=== PATIENT | male | born 1955 | race Caucasian/White ===

== ENCOUNTER 2024-05-16 06:19 | Day surgery (SDC) | payer OTHER, SELFPAY ==
[2024-03-15 09:27] VITALS: BMI 31.3
[2024-03-15 10:39] LABS: Hematocrit 41.7 % (39.0-52.0); Hemoglobin 14.7 g/dL (13.0-18.0); Mean Corp Hgb Conc. 35.3 g/dL (33.0-37.0); Mean Corpuscular Hgb 32.5 pg (27.0-31.0); Mean Corpuscular Volume 92.3 fL (80.0-94.0); Mean Platelet Volume 9.2 fL (7.4-10.4); Platelet Count 274 10^3/uL (130-400); Red Blood Cell Count 4.52 10^6/uL (4.70-6.10); Red Cell Dist. Width 13.1 % (11.5-14.5); White Blood Cell Count 7.7 10^3/uL (4.8-10.8)
[2024-03-15 11:08] LABS: Blood Urea Nitrogen 15 mg/dl (9-20); Calcium 9.2 mg/dl (8.4-10.2); Carbon Dioxide 29 mmol/L (22-30); Chloride 104 mmol/L (98-107); Estimated Creatinine Clearance 65 ml/min; Glucose 97 mg/dl (70-99); Potassium 4.6 mmol/L (3.5-5.1); Sodium 142 mmol/L (135-145); eGFR > 60.00
[2024-05-16] VITALS (9 sets, daily range): BP systolic 111–131; BP diastolic 68–87; BMI 31.3
[2024-05-16] MEDS: CELEBREX 200 MG PO (08:10)
[2024-05-16] MEDS: TYLENOL 1000 MG PO (08:10)
== END 2024-05-16 12:29 | disposition home or self-care (01) ==
LOC: SDS 06:19
PROVIDERS: ATTENDING PHYSICIAN Orthopaedic Surgery Hand Surgery
PROC: 0RNJ4ZZ Release Right Shoulder Joint, Percutaneous Endoscopic Approach (ICD-10-PCS; 2024-05-16)
PROC: 0RBJ4ZZ Excision of Right Shoulder Joint, Percutaneous Endoscopic Approach (ICD-10-PCS; 2024-05-16)
DX: M75.41 Impingement syndrome of right shoulder (principal); S46.011A Strain of muscle(s) and tendon(s) of the rotator cuff of right shoulder, initial encounter; X58.XXXA Exposure to other specified factors, initial encounter
CPT/HCPCS: 29827; 29826; 29823; 36415; 80048; 85027; 93005

== ENCOUNTER 2024-05-26 00:44 | Inpatient (IN) | payer OTHER, SELFPAY ==
[2024-05-25 22:35] VITALS: BP 140/99
[2024-05-25 22:55] LABS: % Basophils 1.4 % (0-2); % Eosinophils 0.1 % (0-6); % Immature Granulocytes 0.5 % (0-0.5); % Lymphocytes 7.6 % (20.5-51.1); % Monocytes 9.9 % (1.7-9.3); % Neutrophils 80.5 % (42.2-75.2); Absolute Basophils 0.1 10^3/uL (0-0.2); Absolute Lymphocytes 0.6 10^3/uL (1.2-3.4); Absolute Monocytes 0.8 10^3/uL (0.1-0.6); Absolute Neutrophils 6.2 10^3/uL (1.4-6.5); Hematocrit 47.1 % (39.0-52.0); Hemoglobin 16.4 g/dL (13.0-18.0); Mean Corp Hgb Conc. 34.8 g/dL (33.0-37.0); Mean Corpuscular Hgb 32.3 pg (27.0-31.0); Mean Corpuscular Volume 92.7 fL (80.0-94.0); Mean Platelet Volume 9.1 fL (7.4-10.4); Nucleated Red Blood Cells % 0 % (-); Platelet Count 271 10^3/uL (130-400); Red Blood Cell Count 5.08 10^6/uL (4.70-6.10); Red Cell Dist. Width 12.9 % (11.5-14.5); White Blood Cell Count 7.7 10^3/uL (4.8-10.8)
--- NOTE | 2024-05-25 23:05 | ED.GENMED ---
History of Present Illness
General
Chief Complaint: Vomiting Blood
Source: patient
Exam Limitations: none
Time Seen by Provider: 05/25/24 23:04
Nursing documentation reviewed up to this point in time: agreed with
Travel History
Have you traveled to any high risk areas for coronavirus over the past 14 days?: No
Have you had any contact with someone who has COVID-19?: No
Do you have any symptoms of coronavirus? Fever > 100 degrees, chills, cough, shortness of breath, sore throat, loss of taste or smell, muscle aches, or headache?: No
History of Present Illness
History of Present Illness:
68-year-old male, with a past medical history significant for questionable Crohn's/inflammatory bowel disease, chronic cough secondary to smoking, current smoker current alcoholic, back pain, NSAID and aspirin use for shoulder pain presents to the
hospital with coffee-ground emesis x 2 days. Patient stated that on Tuesday afternoon patient went out for dinner, grabbed 2 beers, and after drinking his 2 beers he did not feel quite well-fatigued and nauseous, then went home and started
throwing up. Initially patient's vomiting was bilious in color did not have any blood, however he started having coffee-ground emesis later that night. He had about 7-8 episodes of vomitings over the last 2 days. His nausea and vomiting is
accompanied by abdominal pain which is dull and aching, 2/10 in intensity present in the umbilical radiating into his left lower quadrant, different from his Crohn's disease (cramping pain in his right lower quadrant-his baseline),
Course
Orders/Labs/Results
Orders:
Orders
05/25/24 22:47
Type+Screen Urgent
Complete Blood Count/With Diff Urgent
Comprehensive Metabolic Panel Urgent
Lipase Urgent
05/25/24 23:02
ABO2 Urgent
BBK Wristband Number:
Associate notified that ABO2 has been ordered: [id number]
Date: 05/25/24
Time: 22:54
Exercise Science Instructor ID: [id number]
05/25/24 23:13
Pantoprazole [Protonix IV] 80 mg .ROUTE .STK-MED ONE
05/25/24 23:25
Pantoprazole 80 mg/100 ml Nss [Protonix] 80 mg in 100 ml IV NOW
Pantoprazole [Protonix IV] 80 mg IV NOW STA
05/25/24 23:27
CT Abd/pelvis W Iv Cont Urgent
Comment:
Reason For Exam: coffee ground emesis
05/25/24 23:40
Add On- LAB Urgent
Tests Added?: lactic acid levels
Abnormal Lab Results
05/25/24
22:47
MCH 32.3 H pg
(27.0-31.0)
Absolute Lymphs (auto) 0.6 L 10^3/uL
(1.2-3.4)
Absolute Monos (auto) 0.8 H 10^3/uL
(0.1-0.6)
Neutrophils % 80.5 H %
(42.2-75.2)
Lymphocytes % 7.6 L %
(20.5-51.1)
Monocytes % 9.9 H %
(1.7-9.3)
Chloride 87 L mmol/L
(98-107)
Carbon Dioxide 35 H mmol/L
(22-30)
BUN 27 H mg/dl
(9-20)
Glucose 169 H mg/dl
(70-99)
Calcium 10.3 H mg/dl
(8.4-10.2)
AST 358 H U/L
(17-59)
ALT 199 H U/L
(0-50)
05/25/24 22:47
05/25/24 22:47
Vital Signs
Initial and Last Documented VS:
Initial Vital Signs
Temp Pulse Resp BP Pulse Ox
100.4 F H 125 18 140/99 95
05/25/24 22:35 05/25/24 22:35 05/25/24 22:35 05/25/24 22:35 05/25/24 22:35
Last Documented Vital Signs
Temp Pulse Resp BP Pulse Ox
100.4 F H 91 23 120/81 94
05/25/24 22:35 05/25/24 23:30 05/25/24 23:30 05/25/24 23:21 05/25/24 23:30
ED Attending Note
-
Portions of this chart may have been created with voice recognition software.� Occasional wrong word or��sound alike� substitutions may have occurred due to the inherent limitations of voice recognition software.
Discharge Plan
Departure
Prescriptions:
No Action
Fruit and Vegetable Daily 5-6-150 mg Capsule
1 cap PO DAILY
Glucosamine Chondroitin 550-30-1 mg Capsule
1 cap PO DAILY
Neuriva Plus 0.85 mg-200 mcg-1.2 mcg Tablet,Chewable
1 tab PO DAILY
krill oil
1 dose PO DAILY
Referrals:
Armani Soto MD [Family Provider] -
Interventions
Interventions:
*Risk Screen - Suicide Last Done: 05/25/24 22:35
*General Assessment Last Done: 05/25/24 22:35
*Neglect/Abuse Screening Last Done: 05/25/24 22:35
Discharge Date and Time
Print Language: ALBANIAN
[2024-05-25 23:07] LABS: ALT (SGPT) 199 U/L (0-50); AST (SGOT) 358 U/L (17-59); Albumin 4.6 g/dl (3.5-5.0); Alkaline Phosphatase 58 U/L (38-126); Blood Urea Nitrogen 27 mg/dl (9-20); Calcium 10.3 mg/dl (8.4-10.2); Chloride 87 mmol/L (98-107); Glucose 169 mg/dl (70-99); Lipase 47 U/L (23-300); Potassium 3.9 mmol/L (3.5-5.1); Sodium 139 mmol/L (135-145); Total Bilirubin 1.1 mg/dl (0.2-1.3); Total Protein 7.4 g/dl (6.3-8.2); eGFR > 60.00
[2024-05-25 23:18] LABS: Carbon Dioxide 35 mmol/L (22-30)
[2024-05-25 23:21] VITALS: BP 120/81
[2024-05-25] MEDS: PROTONIX IV 80 MG IV (23:34)
[2024-05-25] MEDS: PROTONIX 100 IV (23:52)
--- NOTE | 2024-05-25 23:55 | ED.GENMED ---
History of Present Illness
<Betsy Lee MD, Resident - Last Filed: 05/26/24 00:33>
General
Chief Complaint: Vomiting Blood
Source: patient
Exam Limitations: none
Time Seen by Provider: 05/25/24 23:04
Nursing documentation reviewed up to this point in time: agreed with
Travel History
Have you traveled to any high risk areas for coronavirus over the past 14 days?: No
Have you had any contact with someone who has COVID-19?: No
Do you have any symptoms of coronavirus? Fever > 100 degrees, chills, cough, shortness of breath, sore throat, loss of taste or smell, muscle aches, or headache?: No
History of Present Illness
History of Present Illness:
Mr. Apodaca is a 68-year-old male with PMHx significant for questionable Crohn's disease, dermatitis with multiple flareups, chronic cough secondary to smoking, EtOH use, restless leg syndrome, multiple tendon repairs on aspirin and ibuprofen
[id number] presents to the hospital for evaluation of bloody emesis x 2 days. Patient states that on Tuesday in the evening he ate his dinner at a restaurant, grabbed 2 bottles of beer-did not feel quiet right after drinking beer, came home
felt very nauseous and started throwing up. His initial vomiting was bilious stained, nonbloody but subsequent vomiting episodes were coffee-ground in color. He had 7-8 episodes of vomitings over the last 2 days all of which were coffee-ground,
did not notice any bright red blood in his vomiting. He states that his nausea and vomiting are accompanied by abdominal pain-dull and aching pain in his umbilicus radiating to his left lower quadrant, 2/10 in intensity, and his abdominal pain is
different from his baseline abdominal pain from Crohn's disease (which is a cramping pain on the right side of his abdomen). He also states that he has had history of loose stools for greater than 7 to 8 years, Blair stool scale 5 through 7, he
did not notice any blood in his stool. His last colonoscopy was 6 to 7 years ago, his GI suspected some Crohn's disease but no history of any dysplastic or neoplastic polyps. He he also drinks alcohol, 4 days a week, 2 beers per day, and sometimes
up to 4 shots of vodka/along with his beers. He also states that he has some cough, his cough is secondary to his postnasal drip, and he had it for many years unchanged from his baseline.
He reports that he has not been passing enough urine in his urine is dark in color over the last 2 days. He denies having dysuria, frequency, hesitancy.
He denies having any dizziness, lightheadedness, chest pain, shortness of breath, palpitations, swelling of feet, syncopal or near syncopal episodes, constipation, having sick contacts, traveling in the [place] or traveling outside of [facility]
recently.
If applicable-neuro sx onset
Onset of symptoms known: No
Time pt last seen normal is known: No
Past History
<Betsy Lee MD, Resident - Last Filed: 05/26/24 00:33>
Past History
ED Past Medical History: Other (Lumbar radiculopathy, restless leg syndrome, chronic cough, current smoker, current alcohol use, Crohn's disease, dermatitis, impaired vision.)
ED Past Surgical History: Other (Bilateral L3-L4-L5 laminectomy-06/26/2019, right ACL repair-1992, right rotator cuff repair 1994, right rotator cuff revision repair-May 16, 2024)
Patient has exhibited threatening behavior?: No
PSI?: No
Social History
Tobacco: Smoker (5 cigarettes a day for the last 10 years, 1 pack a day for greater than 20 years)
Alcohol: Daily (4 days a week-4-6 drinks a day.)
Drug: None
Personal: Single
Family History
Family History: Other
Review of Systems
<Betsy Lee MD, Resident - Last Filed: 05/26/24 00:33>
Review of Systems
Allergies reviewed?: No
Constitutional: Reports fever and fatigue
EENT: Reports no symptoms
Respiratory: Reports cough
Cardiac: Reports no symptoms
ABD/GI: Reports abdominal pain, nausea, vomiting and diarrhea
: Reports difficulty voiding and dark urine
Musculoskeletal: Reports no symptoms
Skin: Reports no symptoms
Neurological: Reports no symptoms
Endocrine: Reports no symptoms
Hematologic/Lymphatic: Reports no symptoms
Psychiatric: Reports no symptoms
Phy Exam
<Betsy Lee MD, Resident - Last Filed: 05/26/24 00:33>
Physical Exam
Physical Exam:
General Physical [id number]-[id number], mild distress, dry mucous membranes, obese.
Eye exam-no scleral icterus, EOMI, PERRLA
Cardiovascular exam-S1-S2 present, regular rate and rhythm, no murmurs rubs and gallops
Lungs-clear to auscultation bilaterally, no wheezes, rales, rhonchi.
Abdomen-inspection mildly distended abdomen, coffee-ground emesis noted, bowel sounds normal, mild tenderness to palpation in the LLQ, tympanic on percussion.
Rectal exam-stool palpated in the rectal vault, stool brown in color, no skin tags, no hemorrhoids or varices palpated in the rectum, FOBT positive.
Extremities-no clubbing cyanosis or edema.
Neuro-normal strength tone and reflexes in B/L UE and LE.
Scores
<Betsy Lee MD, Resident - Last Filed: 05/26/24 00:33>
GI Bleed
History of cardiac failure?: No
History of hepatic failure?: No
History of recent syncope?: No
Pulse >100?: Yes
SBP <110?: No
Hgb <13 (male) <12 (female)?: No
BUN >18mg/dL?: Yes
Melena present?: No
Recommendation: Pt has higher risk for needing a medical intervention. Inpatient admission recommended.
<Yadira Balderas, DO - Last Filed: 05/26/24 02:27>
GI Bleed
Recommendation: Pt has higher risk for needing a medical intervention. Inpatient admission recommended.
Course
<Betsy Lee MD, Resident - Last Filed: 05/26/24 00:33>
Orders/Labs/Results
Orders:
Orders
05/25/24 22:47
Type+Screen Urgent
Alcohol Urgent
Complete Blood Count/With Diff Urgent
Comprehensive Metabolic Panel Urgent
Lipase Urgent
05/25/24 23:02
ABO2 Urgent
BBK Wristband Number:
Associate notified that ABO2 has been ordered: [id number]
Date: 05/25/24
Time: 22:54
Test Deskman ID: [id number]
05/25/24 23:13
Pantoprazole [Protonix IV] 80 mg .ROUTE .STK-MED ONE
05/25/24 23:25
Pantoprazole 80 mg/100 ml Nss [Protonix] 80 mg in 100 ml IV NOW
Pantoprazole [Protonix IV] 80 mg IV NOW STA
05/25/24 23:27
CT Abd/pelvis W Iv Cont Urgent
Comment:
Reason For Exam: coffee ground emesis
05/25/24 23:40
Add On- LAB Urgent
Tests Added?: lactic acid levels
05/25/24 23:53
Lactic Acid Urgent
05/26/24 00:26
Admit/Transfer Patient As Directed
Co-Sign Provider:
Level of Care: Inpatient admission
Assign to:: IMU- Intermediate Care
Physician / Group: hospitalist
Diagnosis: hematemesis, small bowel obstruction
Reason for Hospitalization: hematemesis
Expected length of stay greater than two midnights?: Yes
ELOS- Estimated Length of Stay in days: 2
I certify the patient meets the requirements for IP care: Yes
Code Status As Directed
Resuscitation Status: Full Code
GI tube insertion- Treatment ONCE
PRN Pain Medication Management As Directed
May give lesser potent ordered pain med per pt: Yes
preference::
Protocol:: Medication orders for pain may be administered in a
manner that supports deferring to patient preference
when the pt is:
- Requesting an ordered lesser potent pain medication.
Least to most potent pain medications are defined
as: acetaminophen < NSAID < tramadol < opioids
(morphine, oxycodone, hydromorphone).
- Requesting a lesser dose of the same medication IF
ORDERED.
- Requesting a less intrusive route of administration
if both routes are prescribed by the provider (PO <
IV).
05/26/24 00:31
Add On- LAB Stat
Tests Added?: alcohol level
05/26/24 00:38
Lidocaine 2% [Lidocaine Uro-Jet 2%] 1 syringe .ROUTE .STK-MED ONE
Abnormal Lab Results
05/25/24 05/26/24
22:47 00:25
MCH 32.3 H pg
(27.0-31.0)
Absolute Lymphs (auto) 0.6 L 10^3/uL
(1.2-3.4)
Absolute Monos (auto) 0.8 H 10^3/uL
(0.1-0.6)
Neutrophils % 80.5 H %
(42.2-75.2)
Lymphocytes % 7.6 L %
(20.5-51.1)
Monocytes % 9.9 H %
(1.7-9.3)
Chloride 87 L mmol/L
(98-107)
Carbon Dioxide 35 H mmol/L
(22-30)
BUN 27 H mg/dl
(9-20)
Glucose 169 H mg/dl
(70-99)
Lactic Acid 2.1 H mmol/L
(0.7-2.0)
Calcium 10.3 H mg/dl
(8.4-10.2)
AST 358 H U/L
(17-59)
ALT 199 H U/L
(0-50)
05/25/24 22:47
05/25/24 22:47
Vital Signs
Initial and Last Documented VS:
Initial Vital Signs
Temp Pulse Resp BP Pulse Ox
100.4 F H 125 18 140/99 95
05/25/24 22:35 05/25/24 22:35 05/25/24 22:35 05/25/24 22:35 05/25/24 22:35
Last Documented Vital Signs
Temp Pulse Resp BP Pulse Ox
100.4 F H 133 27 118/67 94
05/25/24 22:35 05/26/24 01:30 05/26/24 01:30 05/26/24 01:28 05/25/24 23:30
Julilt;Yadira Balderas, DO - Last Filed: 05/26/24 02:27>
Orders/Labs/Results
Orders:
Orders
05/25/24 22:47
Type+Screen Urgent
Alcohol Urgent
Complete Blood Count/With Diff Urgent
Comprehensive Metabolic Panel Urgent
Lipase Urgent
05/25/24 23:02
ABO2 Urgent
BBK Wristband Number:
Associate notified that ABO2 has been ordered: [id number]
Date: 05/25/24
Time: 22:54
Test Deskman ID: [id number]
11/08/24 23:13
Pantoprazole [Protonix IV] 80 mg .ROUTE .STK-MED ONE
05/25/24 23:25
Pantoprazole 80 mg/100 ml Nss [Protonix] 80 mg in 100 ml IV NOW
Pantoprazole [Protonix IV] 80 mg IV NOW STA
05/25/24 23:27
CT Abd/pelvis W Iv Cont Urgent
Comment:
Reason For Exam: coffee ground emesis
05/25/24 23:40
Add On- LAB Urgent
Tests Added?: lactic acid levels
05/25/24 23:53
Lactic Acid Urgent
05/26/24 00:26
Admit/Transfer Patient As Directed
Co-Sign Provider:
Level of Care: Inpatient admission
Assign to:: IMU- Intermediate Care
Physician / Group: hospitalist
Diagnosis: hematemesis, small bowel obstruction
Reason for Hospitalization: hematemesis
Expected length of stay greater than two midnights?: Yes
ELOS- Estimated Length of Stay in days: 2
I certify the patient meets the requirements for IP care: Yes
Code Status As Directed
Resuscitation Status: Full Code
GI tube insertion- Treatment ONCE
PRN Pain Medication Management As Directed
May give lesser potent ordered pain med per pt: Yes
preference::
Protocol:: Medication orders for pain may be administered in a
manner that supports deferring to patient preference
when the pt is:
- Requesting an ordered lesser potent pain medication.
Least to most potent pain medications are defined
as: acetaminophen < NSAID < tramadol < opioids
(morphine, oxycodone, hydromorphone).
- Requesting a lesser dose of the same medication IF
ORDERED.
- Requesting a less intrusive route of administration
if both routes are prescribed by the provider (PO <
IV).
05/26/24 00:31
Add On- LAB Stat
Tests Added?: alcohol level
05/26/24 00:38
Lidocaine 2% [Lidocaine Uro-Jet 2%] 1 syringe .ROUTE .STK-MED ONE
Abnormal Lab Results
05/25/24 05/26/24
22:47 00:25
MCH 32.3 H pg
(27.0-31.0)
Absolute Lymphs (auto) 0.6 L 10^3/uL
(1.2-3.4)
Absolute Monos (auto) 0.8 H 10^3/uL
(0.1-0.6)
Neutrophils % 80.5 H %
(42.2-75.2)
Lymphocytes % 7.6 L %
(20.5-51.1)
Monocytes % 9.9 H %
(1.7-9.3)
Chloride 87 L mmol/L
(98-107)
Carbon Dioxide 35 H mmol/L
(22-30)
BUN 27 H mg/dl
(9-20)
Glucose 169 H mg/dl
(70-99)
Lactic Acid 2.1 H mmol/L
(0.7-2.0)
Calcium 10.3 H mg/dl
(8.4-10.2)
AST 358 H U/L
(17-59)
ALT 199 H U/L
(0-50)
05/25/24 22:47
05/25/24 22:47
Vital Signs
Initial and Last Documented VS:
Initial Vital Signs
Temp Pulse Resp BP Pulse Ox
100.4 F H 125 18 140/99 95
05/25/24 22:35 05/25/24 22:35 05/25/24 22:35 05/25/24 22:35 05/25/24 22:35
Last Documented Vital Signs
Temp Pulse Resp BP Pulse Ox
100.4 F H 133 27 118/67 94
05/25/24 22:35 05/26/24 01:30 05/26/24 01:30 05/26/24 01:28 05/25/24 23:30
<Betsy Lee MD, Resident - Last Filed: 05/26/24 00:33>
MDM/Problems Addressed
Differential Diagnosis Includes:
GI bleed secondary to NSAID use, peptic ulcer disease, gastric or esophageal varices, portal gastropathy, rectal varices, gastric outlet obstruction.
MDM/Problems Addressed:
IV fluids, Protonix IV given. CT abdomen with IV contrast ordered.
<Betsy Lee MD, Resident - Last Filed: 05/26/24 00:33>
*Radiology
Radiology exam reviewed: preliminary read by ED provider and radiology read reviewed
*Pulse Oximetry
Patient hypoxic: no
*EKG
Interpreted by ED Provider?: NA
*Laser Operator Interpretation
Rate: tachycardiac
Heart Rate: 120
Rhythm: sinus
*Critical Care Note
Total Time (30-74mins, 75-104mins- exclusive of procedures): Not Applicable
<Betsy Lee MD, Resident - Last Filed: 05/26/24 00:33>
Update Note
Update Note:
6 Case discussed with radiologist-acute small bowel obstruction with transition point in the mid ileum in the lower abdomen noted. Proximal dilatation up to 3.9 cm. Distal small bowel is decompressed. Updated patient on the course of action.
Patient is in agreement for NG tube placement.
ED Attending Note
<Betsy Lee MD, Resident - Last Filed: 05/26/24 00:33>
-
Portions of this chart may have been created with voice recognition software.� Occasional wrong word or��sound alike� substitutions may have occurred due to the inherent limitations of voice recognition software.
<Yadira Balderas, DO - Last Filed: 05/26/24 02:27>
ED Attending Note
Patient seen and examined by attending physician: Yes
I performed a history and physical exam of patient and discussed management with resident, I reviewed resident's note and agree with documented findings and plan of care.: Yes
ED Attending Note:
68-year-old gentleman with history of Crohn's disease, no current treatment and has not been evaluated by GI in quite some time. He has history of right rotator cuff repair and has been taking a fair amount of NSAIDs recently along with a fair
amount of alcohol consumption generally 4 times per week. He presents with 2-day history of vomiting coffee-ground material. Has been passing brown stools. He denies bright red blood per vomitus. No history of similar episodes in the past. He
does admit to some chronic loose stools. He complains of generalized abdominal pain, bloating.
Upon arrival to the ED is noted to be febrile, tachycardic without hypotension.
68-year-old gentleman appears his stated age, awake and alert, appears in mild distress. Noted to have low-grade fever.
Abdomen is mildly distended, mildly firm with mild generalized tenderness without rebound or guarding. Mildly hyperactive bowel sounds.
Rectal exam heme positive as per resident.
CBC is reassuring.
Chemistries show moderately elevated LFTs with normal bilirubin, normal alkaline phosphatase. No old labs to compare. This may be related to alcohol use versus hepatitis, other consideration is cholecystitis.
Low-grade fever noted. Concern for acute intra-abdominal infectious process, concern for exacerbation of Crohn's disease, other consideration is small bowel obstruction, colitis, ischemic bowel, appendicitis. Concern for sepsis.
IV Protonix bolus and drip has been initiated. IV fluids initiated.
Will check CT abdomen and pelvis.
Will check lactic acid.
Due to GI bleed, unstable vital signs, fever patient is at risk for significant deterioration thus will admit to hospitalist service.
05/26/2024 00:[address] shows small bowel obstruction with transition point mid ileum in the lower abdomen.
Moderately distended stomach. Fluid filling of the distal esophagus with mild esophageal wall thickening.
Will plan for NG tube to low intermittent suction for GI decompression.
Discharge Plan
Departure
Patient Disposition: Admit
Date of Disposition: 05/26/24
Time of Disposition: 00:31
Admit to doctor: noah Carballo
Presentation/result/management discussed w/ accepting MD/DO: Hospitalist
Discharge Problem:
Acute intestinal obstruction
Interventions
Interventions:
*Risk Screen - Suicide Last Done: 05/25/24 22:35
*General Assessment Last Done: 05/25/24 22:35
*Neglect/Abuse Screening Last Done: 05/25/24 22:35
*ED COVID-19 Vaccine History Last Done: 05/26/24 00:12
UI-Pzbfoj-Srfghamdbz Assessment Last Done: 05/26/24 00:12
ED- Cardiac Assessment Last Done: 05/26/24 00:12
ED- Pulmonary Assessment Last Done: 05/26/24 00:12
[2024-05-26] VITALS (17 sets, daily range): BP systolic 111–135; BP diastolic 58–80; PULSE 91–101
--- NOTE | 2024-05-26 00:12 | HPS.HSE ---
Family Physician
-
Family Physician: Armani Soto
Chief Complaint
-
tarry emesis
History of Present Illness
This 68-year-old male with history of alcohol use regularly and otherwise orthopedic history who presents to the emergency department with approximately 1 day of bloody emesis after several days of uncontrolled nausea and vomiting.
Patient reportedly had a right rotator cuff repair about 10 days ago. Following the repair he was given oxycodone for pain. Patient reportedly stopped taking the oxycodone about 5 days ago. Initially took Tylenol which he also ran out of and then
he started taking ibuprofen about 4 days ago. He reported that it takes 600 mg of ibuprofen every 4 hours while awake up to about 6 times a day. He did not send having uncontrolled vomiting that was nonbilious. He started taking antiemetics
Zofran as well as Compazine today. He reported that his vomiting turned black and tarry today. Denies melena. He said his had up to 10 episodes of vomiting today with dark tarry emesis in the last few. He denied chest pain but feels abdominal
pressure. He denies any shortness of breath. He denies cough. He reports chronic postnasal drip. Patient reports history of alcohol use drinking up to 4 beers daily and his last drink was on Tuesday when he had 2. He denies any history of
gallstones. He denies prior history of peptic ulcers or GI bleed. He denies aspirin and anticoagulant use. Last p.o. intake was 2 days ago.
In the Emergency Department the patient had a temp of 100.4, his blood pressure was stable at 120/81 and was satting 94% on room air. Hemoglobin was 16.4. Platelet count was normal at 271. White count was normal at 7.7. BUN/creatinine were 27
and 1.1 respectively, bicarb was 35 the rest of the electrolytes were normal. Lipase was normal. He has a transaminitis with AST of [address] ALT of [address]. [address] of the abdomen pelvis is pending
Medical History
Past Medical History
Past Medical History: Reports None
Past Surgical History: Reports Orthopedic (L2-4 laminectomy)
Additional Past Surgical History:
Right rotator cuff repair
Social History
Tobacco: Smoker
Alcohol: Daily
Drug: None
Personal: Single
Living: Alone
Employment: Employed
Family History
Family History: Not pertinent
Allergies / Home Medications
Allergies reflects when Allergies were last updated in [facility].
Home Medications with original date entered in [facility]
Allergy/Medication List:
Allergies
Allergy/AdvReac Type Severity Reaction Status Date / Time
No Known Allergies Allergy Unverified 03/29/24 09:57
Home Medications
B6 0.85 mg-folic 200 [id number]-vtetse-xjkwyoqrdzwl oral chewable tablet (Neuriva Plus) 1 tab PO DAILY 03/29/24
glucosamine sulf dipot chlr,msm,chond 550 mg-C 30 mg-yobany 1 mg capsule (Glucosamine Chondroitin) 1 cap PO DAILY 03/29/24
krill oil 1 dose PO DAILY 03/29/24
nhiubmpz-eypdwr-fjxof extract 5 mg-6 mg-150 mg capsule (Fruit and Vegetable Daily) 1 cap PO DAILY 03/29/24
Review of Systems
-
Constitutional: Reports No Symptoms
EENT: Reports No Symptoms
Respiratory: Reports No Symptoms
Cardiac: Reports No Symptoms
Abdomen/GI: Reports Nausea and Vomiting
: Reports No Symptoms
Musculoskeletal: Reports No Symptoms
Skin: Reports No Symptoms
Neurological: Reports No Symptoms
Endocrine: Reports No Symptoms
Hematologic/Lymphatic: Reports No Symptoms
Psych: Reports No Symptoms
Physical Exam
Vital Signs
Vital Signs
Temp Pulse Resp BP Pulse Ox
100.4 F H 91 23 120/81 94
05/25/24 22:35 05/25/24 23:30 05/25/24 23:30 05/25/24 23:21 05/25/24 23:30
Physical Exam
General: Well Developed and Well Nourished
HEENT: NormoCephalic, Anicteric and Moist mucous membranes
Respiratory: Clear
Cardiac: S1/S2 and Tachycardia
Breast: Deferred by me
GI: Soft, Non Distended, Normal Bowel Sounds and Tender
Rectal: Brown and Hem Positive
Genito-urinary: Deferred by me
Musculoskeletal: No Clubbing, No Cyanosis and No Edema
Skin: Warm
Neuro: AO x 3
Hematologic/Lymphatic: No Lymphadenopathy
Psych: Calm
Laboratory Results
-
05/25/24 22:47
05/25/24 22:47
Laboratory Results
Total Bilirubin 1.1 mg/dl (0.2-1.3) 05/25/24 22:47
AST 358 U/L (17-59) H 05/25/24 22:47
ALT 199 U/L (0-50) H 05/25/24 22:47
Alkaline Phosphatase 58 U/L (38-126) 05/25/24 22:47
Lipase 47 U/L (23-300) 05/25/24 22:47
Data Reviewed
-
Lab Data: Labs Reviewed by me
Old Records: Reviewed
Impression/Plan
-
IMPRESSION:
68 M with intractable N/V and now hematemesis with black tarry emesis (not coffee grounds) in the setting of NSAID use. No significant abdominal pain or tenderness on exam. Hemodynamically stable. Hgb 16.4. bicarb 35, BUN 27 and Cr 1.1. Suspect
acute gastritis versus peptic ulcer secondary to NSAID use. CTAP eventually did show large amounts of fluid in the esophagus and stomach. There is a small bowel obstruction as well. NG tube placed with over 2 L of gastric content which was that
coffee-ground produced.
PLAN:
1. Hematemesis - Hemodynamically stable and significantly dehydrated. 2 L brown/black emesis with NG tube placement. Appears to have bleed likely due to multifactorial issues including gastric retention, nsaid use and etoh. No prior
intraabdominal surgery. ? h/o crohns disease. No ascites. No obvious cirrhosis on CT scan.
- admit to IMU
- ppi gtt for now
- antiemetics and pain control
- aggressive hydration
- type and screen and trend h/h
- NG tube to suction
- GI consult
- surgery consult
2. Transaminitis - AST> ALT. Normal bili and alkphos. Suspect 2/2 ETOH. No known h/o biliary disease and no meds. No major acetaminophen use
- ctap to ru/o stone
- trend lft for now
- acute hep panel
3. ETOH use - 4 bottles/night. Last use 48 hours ago. No history of withdrawal. No current withdrawal symptoms.
- ciwa protocol
- check folate/b12
DVT PPX - SCDs
Code Status - Full Code
[2024-05-26 01:12] LABS: Lactic Acid 2.1 mmol/L (0.7-2.0)
[2024-05-26 01:14] LABS: Alcohol None Detected
[2024-05-26] MEDS: NSS 1000 IV (01:52)
--- NOTE | 2024-05-26 02:52 | PTCARENOTE ---
Pt. arrived from ED, NG tube placed to LIS. Offers no complaints of pain, N/V.
Focally intact, normocephalic/atraumatic, pupils =/R 3mm.
NSR w/o ectopy, Normotensive, normothermic.
bowel sounds hypoactive, frim round.
[2024-05-26] MEDS: PROTONIX 100 IV ×3 (03:52→18:39)
[2024-05-26] MEDS: D5/0.9% SODIUM CHLORIDE 1000 IV ×3 (03:53→18:39)
[2024-05-26 04:27] LABS: Hematocrit 41.5 % (39.0-52.0); Hemoglobin 14.2 g/dL (13.0-18.0); Mean Corp Hgb Conc. 34.2 g/dL (33.0-37.0); Mean Corpuscular Hgb 32.4 pg (27.0-31.0); Mean Corpuscular Volume 94.7 fL (80.0-94.0); Mean Platelet Volume 9.2 fL (7.4-10.4); Platelet Count 222 10^3/uL (130-400); Red Blood Cell Count 4.38 10^6/uL (4.70-6.10); White Blood Cell Count 8.1 10^3/uL (4.8-10.8)
[2024-05-26 04:49] LABS: ALT (SGPT) 220 U/L (0-50); AST (SGOT) 346 U/L (17-59); Albumin 3.6 g/dl (3.5-5.0); Alkaline Phosphatase 40 U/L (38-126); Blood Urea Nitrogen 26 mg/dl (9-20); Calcium 8.9 mg/dl (8.4-10.2); Carbon Dioxide 34 mmol/L (22-30); Chloride 95 mmol/L (98-107); Direct Bilirubin 0.3 mg/dl (0.0-0.4); Estimated Creatinine Clearance 64 ml/min; Glucose 136 mg/dl (70-99); Magnesium 1.9 mg/dl (1.6-2.3); Phosphorus 4.7 mg/dl (2.5-4.5); Potassium 4.3 mmol/L (3.5-5.1); Sodium 140 mmol/L (135-145); Total Bilirubin 0.8 mg/dl (0.2-1.3); eGFR > 60.00
--- NOTE | 2024-05-26 06:32 | CON.GI ---
Addendum entered and electronically signed by Brandy Chowissa DO Flora 05/26/24 13:36:
I saw and examined the patient.
The EXTRACT OPERATOR or PA's note was reviewed and I agree with the note.
Comment: Briefly, Paulie is a 68-year-old male with past medical history of alcohol and tobacco abuse and questionable Crohn's disease but not formally diagnosed who presents with reported hematemesis, concern for upper GI bleeding as well as a small
bowel obstruction on arrival. CT scan showed transition point in the ileum, NG tube placed with immediate output of 2 L of bilious and coffee-ground material. He admits to heavy NSAID use following repeat should surgery on 05/16. Initial
hemoglobin was 16.4 with improvement to 14.2. Lab abnormalities include elevated transaminases, AST 346, ALT 220, normal T. bili and alkaline phosphatase, platelets within normal limits. He reports previously following with Dr. Sparks at
[facility], EGD and colonoscopy performed about 5 years ago, states they felt it could be Crohn's but were unable to definitively say. Never received treatment for this, cannot provide any additional details requiring this. He does admit to
chronic GI symptoms of bloating and diarrhea for the last 15 to 20 years. He does recall a capsule endoscopy at some point, no MRE or CTE.
#SBO-- concern for new IBD diagnosis (Crohns)
-NG with 1500 cc of bilious output; no concern for active GI bleeding
-IV PPI
-Surgery following, no plans for surgical intervention at this time; depending on clinical course, would defer endoscopic intervention to outpatient setting following resolution of his obstruction
-Agree with PO contrast study pending clinical course
-CRP elevated to 74.70
-check hepatitis serologies, quant TB, fecal calprotectin
-request records from [facility] (Dr. Sparks) on Tuesday, given reported 'questionable' Crohns on prior exams
Acute Liver Injury- likely 2/2 active EtoH use given AST > ALT; need to consider possible autoimmune etiology given suspected IBD; would hold off on sending comprehensive serologic workup at this time
-AST 346, ALT 220, Alk phos 40, Tbili 0.8
-no evidence of cirrhosis on imaging
-check hepatitis serologies
-no signs of withdrawal
Original Note:
Consultation
-
Date/Time Consultation Requested: 05/26/24213
Date/Time Consultation Performed: 05/26/24 07
Requesting Provider: noah Rodriguez MD
Performing Provider: BRUCE Rodriguez, Flor Hines DO
Reason for Consultation: hematemesis
Medical History
Chief Complaint / HPI
History of Present Illness:
Pt is a 68yo with hx prior lami, ACL repair, ? crohns disease, dermatitis, with regular ETOH/tobacco use that went for repeat shoulder surgery 05/16. In review with patient he was initially taking oxycodone. He admits since that time he has taken
about 7 tablets of the 10 he was given. After he took a few oxycodone he did wean himself down to Tylenol but did run out. He then began taking Advil several tablets every few hours over the last 2 days. He admits this past Tuesday he began
vomiting blood for 2 days with large volumes of dark emesis. On admission pt noted with hbg 16.4 with drop to 14.2. He is noted with normal platelets, albumin with some elevation of AST 346 and ALT to 220. Ct on admission with concern for distal
SBO with dilated stomach and fluid in distal esophagus.
In review with patient he does have some chronic GI symptoms. He does admit to some chronic bloating and diarrhea for 15-20 years. He has been followed by Dr. Sparks at [place] he has questionable Crohn's disease but has never had a
definitive diagnosis and has never been placed on medications. He recalls about 3-4 colonoscopies in the past with last follow about 5 to 7 years ago. He also recalls a capsule endoscopy at some point but no SB imaging. He denies any other
history of abdominal surgery or prior bowel obstructions. He does admit to occasional reflux with Tums as needed. He also admits to some abdominal pain that started with the vomiting. As far as the diarrhea he will typically have 3-4 stools per
day he will only see solid stool every several months. He denies any constipation blood or black in stools.
Past Medical History
Past Medical History: Other (ETOH abuse, tobacco abuse, ? crohns disease, dermatitis, restless leg syndrome, chronic cough)
Past Surgical History: Orthopedic (rotator cuff repair 10 days ago and in 1994, lami, prior ACL repair, tendon repairs)
Social History
Tobacco: Smoker (5 cigs per day)
Alcohol: Daily (4 drinks 4 times per week)
Drug: Marijuana
Living: Alone
Employment: Employed
Family History
Family History: Other (no family hx crohns/UC no family hx colon CA or polyps)
Allergies / Home Medications
Allergy/AdvReac Type Severity Reaction Status Date / Time
No Known Allergies Allergy Unverified 03/29/24 09:57
�Medication �Instructions �Recorded
B6 0.85 mg-folic 200 1 tab PO DAILY 03/29/24
[id number]-wzobdx-yqtxyxtiyton oral
chewable tablet (Neuriva Plus)
glucosamine sulf dipot 1 cap PO DAILY 03/29/24
chlr,msm,chond 550 mg-C 30 mg-yobany
1 mg capsule (Glucosamine
Chondroitin)
krill oil 1 dose PO DAILY 03/29/24
hufsogsm-exgutw-gfoxd extract 5 1 cap PO DAILY 03/29/24
mg-6 mg-150 mg capsule (Fruit and
Vegetable Daily)
Review of Systems
-
History Source: Patient and Family
Constitutional: Reports Fever (fever like symptom prior to admission) and Weight Gain
EENT: Reports Sore Throat (with NGT)
Respiratory: Reports No Symptoms
Cardiac: Reports No Symptoms
Abdomen/GI: Reports Abdominal Pain, Nausea, Vomiting and Diarrhea
: Reports No Symptoms
Musculoskeletal: Reports No Symptoms
Skin: Reports No Symptoms
Neurological: Reports Weakness
Endocrine: Reports No Symptoms
Hematologic/Lymphatic: Reports Bleeding
Vital Signs
Temp Pulse Resp BP Pulse Ox
98.2 F 103 23 131/80 90
05/26/24 02:33 05/26/24 05:00 05/26/24 05:00 05/26/24 04:00 05/26/24 05:00
Physical Exam
Exam
General: Well Developed, Well Nourished and No Apparent Distress
HEENT: Normocephalic and Anicteric
Respiratory: Clear
Cardiac: Other (tachy)
GI: Soft, Tender (diffuse mild mid abdomen), Distended and Other (NGT in place with dark/black emesis )
Musculoskeletal: No Clubbing, No Cyanosis and Other (right shoulder bruising and limited motion s/p repair)
Skin: Warm, Dry and Rash (chronic small patches of dry dermatitis )
Neuro: Awake, Alert and AO x 3
Psych: Calm
Results
WBC 8.1 10^3/uL (4.8-10.8) 05/26/24 04:03
Hgb 14.2 g/dL (13.0-18.0) 05/26/24 04:03
Hct 41.5 % (39.0-52.0) 05/26/24 04:03
MCV 94.7 fL (80.0-94.0) H 05/26/24 04:03
Plt Count 222 10^3/uL (130-400) 05/26/24 04:03
Absolute Neuts (auto) 6.2 10^3/uL (1.4-6.5) 05/25/24 22:47
Sodium 140 mmol/L (135-145) 05/26/24 04:03
Potassium 4.3 mmol/L (3.5-5.1) 05/26/24 04:03
Chloride 95 mmol/L (98-107) L 05/26/24 04:03
Carbon Dioxide 34 mmol/L (22-30) H 05/26/24 04:03
BUN 26 mg/dl (9-20) H 05/26/24 04:03
Creatinine 1.1 mg/dL (0.7-1.3) 05/26/24 04:03
Calcium 8.9 mg/dl (8.4-10.2) 05/26/24 04:03
Total Bilirubin 0.8 mg/dl (0.2-1.3) 05/26/24 04:03
AST 346 U/L (17-59) H 05/26/24 04:03
ALT 220 U/L (0-50) H 05/26/24 04:03
Alkaline Phosphatase 40 U/L (38-126) 05/26/24 04:03
Lipase 47 U/L (23-300) 05/25/24 22:47
Diagnostic Image Results:
05/25/24 CT Abd/pelvis W Iv Cont
Findings suspicious for mid to distal small bowel obstruction, as noted above, without findings to suggest free air, pneumatosis or portal venous gas.
Dilated stomach with air and fluid as well as mildly dilated distal esophagus containing fluid.
Prior GI Procedures:
EGD: none
Colonoscopy: 3-[address] De La Paz ? crohns but no definitive diagnosis
Assessment / Plan
-
Pt is a 68yo with hx prior lami, ACL repair, ? crohns disease, dermatitis, with regular ETOH/tobacco use that went for repeat shoulder surgery 05/16. In review with patient he was initially taking oxycodone. He admits since that time he has taken
about 7 tablets of the 10 he was given. After he took a few oxycodone he did wean himself down to Tylenol but did run out. He then began taking Advil several tablets every few hours over 2 days. He admits this past Tuesday he began vomiting
blood for 2 days with large volumes of dark emesis. On admission pt noted with hbg 16.4 with drop to 14.2. He is noted with normal platelets, albumin with some elevation of AST 346 and ALT to 220. Ct on admission with concern for distal SBO with
dilated stomach and fluid in distal esophagus.
-concern for distal SBO on CT s/p decompression with NGT on admission
-recent increased NSAID use s/p shoulder surgery 05/16
-elevated transaminases
-? hx crohns no prior meds and diagnosis not confirmed , chronic diarrhea and bloating
other med problems:
-tobacco abuse
-EOTH abuse
-prior lami/ACL repair
-dermatitis - chronic rash
PLAN:
Etiology of symptoms with concern for small bowel obstruction with large volume emesis and finding on CT
etiology of obstruction related to underlying SB crohn's that has not been fully diagnosed vs other _NSAID related ulcer withobstruction vs constipation with narcotic use which pt denies and has chronic diarrhea
agree with NGT decompression -initially drained 1 1/2 canister in ER now less volume last few hours with some improvement in pain and bloating
will check follow up abd film
for surgical eval
add CRP, ESR and fecal yvette
obtain if able records from Dr. De La Paz
if not improving and surgery needed will need to review surgical path for underlying crohns vs if improvement without surgery eventual repeat colonoscopy and SB imaging
with undefined crohn diagnosis will review with Dr. Hinse any role for steroids
discussed NSAID, ETOH and tobacco use
cont NPO, PPI gtt
trend LFT's may be ETOH related
-
-
Thank you for consultation and allowing me to participate in the patient's care. Please call the air conditioning mechanic GI physician during the after hours with any questions or concerns.
[2024-05-26] MEDS: FOLVITE 1 MG PO (08:41)
[2024-05-26] MEDS: THIAMINE INJECTION 200 MG IV ×2 (08:42→20:19)
[2024-05-26 09:25] LABS: Erythrocyte Sed Rate 24 mm/hour (0-20)
--- NOTE | 2024-05-26 10:27 | W.PN.HOSP.TC ---
Today's Communication/Plan
-
PPI. NG tube. N.p.o.
Assessment / Plan
Assessment / Plan
Physical exam:
General: Acutely ill
HEENT: Normocephalic, Atraumatic and Moist Mucous Membranes
Respiratory: Clear to Auscultation; Negative Wheezes, Rales or Rhonchi
Cardiac: Regular Rhythm and S1/S2
GI: Soft, Nontender and Nondistended
Musculoskeletal: No Clubbing, No Cyanosis and No Edema
Neuro: Awake, Alert and Oriented
Psych: Calm
A/P:
Small bowel obstruction:
Keep n.p.o.
IV fluids
NG tube
May need p.o. contrast study depending on his clinical course
Surgery consult appreciated
Fever:
Likely related to SBO
Monitor off antibiotic
Probable GI bleed:
Related to SBO or Teresita-Maier or other
Continue IV PPI
GI consult appreciated
Probable Crohn's:
Defer steroids use to GI
Requesting all records
Continue to monitor
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
Check hepatitis serology
Monitor trend
Alcohol use disorder:
Continue MSA protocol but no withdrawal symptoms at the moment
DVT prophylaxis:
SCDs
CODE STATUS:
Full code
Total time spent on today's encounter was 52 minutes which included time spent in counseling the patient/family regarding diagnosis and treatment plan as listed above, goals of care, and symptom management. Case was discussed with nursing staff,
specialists, and care coordinators/case management. All labs and imaging personally reviewed by me. Remainder the time spent in detailed review of previous records, lab data, imaging, and other medical provider documentation.
Anticipated Discharge: > 48 hours
Subjective/Interval History
-
Date of Service: May 26, 2024
Patient with abdominal discomfort. He has NG tube in place. No chest pain or shortness of breath. Afebrile
Objective Data
-
Labs:
Laboratory Results
05/25/24 05/26/24
22:47 04:03
WBC 7.7 8.1
Hgb 16.4 14.2
Hct 47.1 41.5
Plt Count 271 222
Sodium 139 140
Potassium 3.9 4.3
Chloride 87 L 95 L
Carbon Dioxide 35 H 34 H
BUN 27 H 26 H
Creatinine 1.1 1.1
Glucose 169 H 136 H
Calcium 10.3 H 8.9
Total Bilirubin 1.1 0.8
AST 358 H 346 H
ALT 199 H 220 H
Alkaline Phosphatase 58 40
Vital Signs:
Vital Signs
Temp Pulse Resp BP Pulse Ox
98.3 F 103 23 131/80 90
05/26/24 07:16 05/26/24 05:00 05/26/24 05:00 05/26/24 04:00 05/26/24 05:00
I&O
05/25/24 05/26/24 05/27/24
06:59 06:59 06:59
Output Total 1775 / 1775
Balance -1775 / -1775
--- NOTE | 2024-05-26 10:30 | CON.GS ---
Documented by User: BRUCE Garcia 05/26/24 13:19
Consultation
-
Date/Time Consultation Requested: 05/26/24213
Requesting Provider: Kait
Reason for Consultation: small bowel obstruction, hematemesis, ng tube
Medical History
-
Chief Complaint: abdominal pain
History of Present Illness:
Mr. Muro is a 68 yo male with recent right rotator cuff repair and possible history of Crohn's who presents with nausea and vomiting over the past 3-4 days. He notes that the vomit turned darker yesterday and was tarry causing him to present to
the ED. He notes that he is still passing gas but has not had a recent stool. At baseline, he usually has 3-4 stools per day. He notes bloating and mid abdominal pain with tenderness and distention on exam. NGT was placed in the ED which he reports
has helped his symptoms. Thick bilious outputs noted within the canister. Voice is hoarse with NGT in place somewhat limiting history.
Past Medical History
Past Surgical History: Orthopedic (l2-4 laminectomy, right rotator cuff repair, ACL repair)
Social History
Tobacco: Smoker (07/21 ppd)
Alcohol: Occasional (4 drinks 4x a week)
Drug: Marijuana
Personal: Single
Family History
Family History: Reviewed & Not Pertinent
Allergies / Home Medications
Allergy/AdvReac Type Severity Reaction Status Date / Time
No Known Allergies Allergy Unverified 03/29/24 09:57
�Medication �Instructions �Recorded �Confirmed �Type
B6 0.85 mg-folic 200 1 tab PO DAILY 03/29/24 05/16/24 History
[id number]-dyxtdl-rybmcxbjzfzi oral
chewable tablet (Neuriva Plus)
glucosamine sulf dipot 1 cap PO DAILY 03/29/24 05/16/24 History
chlr,msm,chond 550 mg-C 30 mg-yobany
1 mg capsule (Glucosamine
Chondroitin)
krill oil 1 dose PO DAILY 03/29/24 05/16/24 History
btfcablp-swjoeq-sborv extract 5 1 cap PO DAILY 03/29/24 05/16/24 History
mg-6 mg-150 mg capsule (Fruit and
Vegetable Daily)
Review of Systems
-
History Source: Patient
All other systems: Negative unless noted
A 10 point review of systems was completed, and was negative except as per HPI.
Physical Exam
Vital Signs
Temp Pulse Resp BP Pulse Ox
98.3 F 103 23 131/80 90
05/26/24 07:16 05/26/24 05:00 05/26/24 05:00 05/26/24 04:00 05/26/24 05:00
05/25/24 05/26/24 05/27/24
06:59 06:59 06:59
Actual Weight 81.8 kg
Body Mass Index (BMI) 30.0
Lab Results
05/26/24 04:03
05/26/24 04:03
WBC 8.1 10^3/uL (4.8-10.8) 05/26/24 04:03
Hgb 14.2 g/dL (13.0-18.0) 05/26/24 04:03
Hct 41.5 % (39.0-52.0) 05/26/24 04:03
Plt Count 222 10^3/uL (130-400) 05/26/24 04:03
Abs Immat Gran (auto) 0.0 10^3/uL (0-0.05) 05/25/24 22:47
Neutrophils % 80.5 % (42.2-75.2) H 05/25/24 22:47
Physical Exam
General: Well Developed and No Apparent Distress
HEENT: Moist Mucous Membranes and Other (hoarse voice)
Respiratory: Non Labored Respirations
GI: Soft, Tender (mild to mod centrally) and Distended (mild to mod)
Skin: Warm and Dry
Neuro: Awake, Alert and AO x 3
Psych: Calm
Data Reviewed
-
CT Scan: Image Personally Visualized and interpreted, Report Reviewed by me, Discussed with Physician and Discussed with Patient
Labs: Labs Reviewed by me, Discussed with Physician and Discussed with Patient
Assessment / Plan
-
68 yo male with recent rotator cuff surgery and possible h/o Crohn's presenting through the ED with 3-4 days of n/v but able to pass flatus. CT imaging reviewed and consistent with a partial SBO of uncertain etiology. Denies prior intraabdominal
infections or surgeries. No hernias present. No free air, pneumatosis or evidence of bowel threat/compromise. Possibly pSBO secondary to IBD flare?
NGT with 1500ml output overnight, bilious outputs present and improvement in symptoms s/p placement. Blood noted with placement.
Hypovolemia with tachycardia present, HR improving with volume resuscitation.
Low grade temp last night of 100.4, no leukoctyosis
ABD xrays this am with good placement of NGT, distention consistent with obstruction still present
--No plans for emergent surgery today
--Will follow with bowel rest and decompression
--GI following, will defer further IBD workup/empiric treatment to GI service
--On IV PPI
--If no improvement, will plan imaging with PO contrast Tuesday to further evaluate

Documented by User: Greg Lopez MD 05/26/24 13:30
Assessment / Plan
-
68 yo male with recent rotator cuff surgery and possible h/o Crohn's presenting through the ED with 3-4 days of n/v but able to pass flatus. CT imaging reviewed and consistent with a partial SBO of uncertain etiology. Denies prior intraabdominal
infections or surgeries. No hernias present. No free air, pneumatosis or evidence of bowel threat/compromise. Possibly pSBO secondary to IBD flare?
NGT with 1500ml output overnight, bilious outputs present and improvement in symptoms s/p placement. Blood noted with placement.
Hypovolemia with tachycardia present, HR improving with volume resuscitation.
Low grade temp last night of 100.4, no leukoctyosis
ABD xrays this am with good placement of NGT, distention consistent with obstruction still present
--No plans for emergent surgery today
--Will follow with bowel rest and decompression
--GI following, will defer further IBD workup/empiric treatment to GI service
--On IV PPI
--If no improvement, will plan imaging with PO contrast Tuesday to further evaluate
I saw and examined the patient independently.
The [place] [employer] Operator's note was reviewed and I agree with the note, assessment and plan except where noted below.
Comment: This is a 68-year-old male, recent rotator cuff surgery (Dr. Jennings), questionable Crohn's/IBD history (not biopsy-proven) who presents with a 3 to 4-day history of nausea vomiting with flatus and found to have a partial small bowel
obstruction on CT despite no hernias or prior intra-abdominal surgeries or infections. His exam and vitals are reassuring. Given overall picture would favor a Crohn's flare as the underlying cause
Appreciate GI involvement and would defer workup and treatment to their service.
No acute general surgery intervention warranted at this time.
Diet per GI
General surgery will follow peripherally, please call with any questions or concerns.
I spent 60 minutes in total for the care of this patient today including direct patient care and counseling, reviewing labs, imaging, coordination of care, as well as documentation.
--- NOTE | 2024-05-26 12:38 | PTCARENOTE ---
Pt received from slot shift supervisor RN. Ox3 and appropriate, MSAS scored 0. NSR on tele, ortho's (-). 97% on RA, breath sounds clear. NPO, sergio sump in L nare at the 65cm nichole. Sergio is on LIS pulling a small amount of dark brown/ black bile. Using urinal
without difficulty. R shoulder with recent rotator cuff surgery, pt has a sling that he uses when he gets up. IV sites intact, pt has protonix gtt infusing. Call ocasio within reach.
[2024-05-26] MEDS: TYLENOL 650 MG PO ×2 (13:23→20:21)
--- NOTE | 2024-05-26 16:35 | CM ---
Patient admitted from home with gastritis. He lives alone in apartment with 14 steps up. He just went back to work after shoulder surgery.
He is able to take care of himself.
He does not use any DME. No history of VNA or SNF.
PCP Dr. Eliazar Weber
Pharmacy: [facility]
Plan; home no needs
[2024-05-27] VITALS (10 sets, daily range): BP systolic 108–165; BP diastolic 70–127; BMI 31.0
[2024-05-27] MEDS: D5/0.9% SODIUM CHLORIDE 1000 IV ×3 (02:18→19:48)
[2024-05-27] MEDS: TYLENOL 650 MG PO ×2 (02:19→23:52)
[2024-05-27 03:44] LABS: Hematocrit 36.2 % (39.0-52.0); Hemoglobin 11.9 g/dL (13.0-18.0); Mean Corp Hgb Conc. 32.9 g/dL (33.0-37.0); Mean Corpuscular Hgb 31.7 pg (27.0-31.0); Mean Corpuscular Volume 96.5 fL (80.0-94.0); Mean Platelet Volume 9.3 fL (7.4-10.4); Platelet Count 200 10^3/uL (130-400); Red Blood Cell Count 3.75 10^6/uL (4.70-6.10); Red Cell Dist. Width 12.9 % (11.5-14.5); White Blood Cell Count 6.9 10^3/uL (4.8-10.8)
[2024-05-27 04:06] LABS: ALT (SGPT) 117 U/L (0-50); AST (SGOT) 83 U/L (17-59); Albumin 2.8 g/dl (3.5-5.0); Alkaline Phosphatase 42 U/L (38-126); Blood Urea Nitrogen 17 mg/dl (9-20); Calcium 7.8 mg/dl (8.4-10.2); Carbon Dioxide 30 mmol/L (22-30); Chloride 104 mmol/L (98-107); Estimated Creatinine Clearance 71 ml/min; Glucose 106 mg/dl (70-99); Potassium 3.3 mmol/L (3.5-5.1); Sodium 141 mmol/L (135-145); Total Bilirubin 0.4 mg/dl (0.2-1.3); Total Protein 5.1 g/dl (6.3-8.2); eGFR > 60.00
[2024-05-27] MEDS: PROTONIX 100 IV (04:50)
--- NOTE | 2024-05-27 08:05 | W.PN.HOSP.TC ---
Today's Communication/Plan
-
Abdomen x-ray. N.p.o. NG tube and IV fluids. PPI
Assessment / Plan
Assessment / Plan
Physical exam:
General: Acutely ill
HEENT: Normocephalic, Atraumatic and Moist Mucous Membranes
Respiratory: Clear to Auscultation; Negative Wheezes, Rales or Rhonchi
Cardiac: Regular Rhythm and S1/S2
GI: Soft, hypoactive bowel sounds, nontender and Nondistended
Musculoskeletal: No Clubbing, No Cyanosis and No Edema
Neuro: Awake, Alert and Oriented
Psych: Calm
A/P:
Small bowel obstruction:
Keep n.p.o.
IV fluids
NG tube--> plan for NG tube clamp trial
Plan for abdominal x-ray today
Surgery consult appreciated
Fever:
Likely related to SBO
Monitor off antibiotic
Probable GI bleed:
Related to SBO or Teresita-Maier or other
Continue IV PPI but switch from drip to twice daily
GI consult appreciated and no concern for active bleeding
Anemia:
Hemoglobin 14.2--> 11.9
Acute blood loss anemia versus dilutional
Continue to monitor hemoglobin
Probable Crohn's:
Defer steroids or any immunosuppressive use to GI
Requesting old records--> he says he was diagnosed many years back but has not required any treatment.
Continue to monitor
Hypokalemia:
Replete and trend
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
Trending down
Check hepatitis serology
Monitor trend
Alcohol use disorder:
Continue MSA protocol but no withdrawal symptoms at the moment
DVT prophylaxis:
SCDs
CODE STATUS:
Full code
Anticipated Discharge: > 48 hours
Subjective/Interval History
-
Date of Service: May 27, 2024
Patient passing gases today, decreased NG tube output. No chest pain or shortness of breath. Afebrile
Objective Data
-
Labs:
Laboratory Results
05/27/24
03:17
WBC 6.9
Hgb 11.9 L
Hct 36.2 L
Plt Count 200
Sodium 141
Potassium 3.3 L
Chloride 104
Carbon Dioxide 30
BUN 17
Creatinine 1.0
Glucose 106 H
Calcium 7.8 L
Total Bilirubin 0.4
AST 83 H
ALT 117 H
Alkaline Phosphatase 42
Vital Signs:
Vital Signs
Temp Pulse Resp BP Pulse Ox
98.1 F 63 17 108/70 97
05/27/24 03:19 05/27/24 04:00 05/27/24 04:00 05/27/24 04:00 05/27/24 05:50
I&O
05/26/24 05/27/24 05/28/24
06:59 06:59 06:59
Intake Total 1859
Output Total 1774 750 / 750
Balance -1774 / -1774 -750 / -750
[2024-05-27] MEDS: KCL 270 MEQ IV (08:46)
[2024-05-27] MEDS: FOLVITE 1 MG PO (08:54)
[2024-05-27] MEDS: THIAMINE INJECTION 200 MG IV ×2 (08:54→20:18)
[2024-05-27] MEDS: ULTRAM 50 MG PO (08:54)
--- NOTE | 2024-05-27 09:29 | W.PN.GS2 ---
Today's Communication / Plan
-
NGT clamp trial, continue NPO
Assessment / Plan
-
68 yo male with recent rotator cuff surgery and possible h/o Crohn's presenting through the ED with 3-4 days of n/v but able to pass flatus. CT imaging reviewed and consistent with a partial SBO of uncertain etiology. Denies prior intraabdominal
infections or surgeries. No hernias present. No free air, pneumatosis or evidence of bowel threat/compromise. Possibly pSBO secondary to IBD flare?
AFVSS
Symptomatic improvement
CRP elevated, no leukocytosis
--No plans for emergent surgery
--ABD xr pending
--Clamp trial of NGT, return to suction if becomes symptomatic
--GI following, will defer further IBD workup/empiric treatment to GI service
--On IV PPI
Subjective Data
-
Date of Service: May 27, 2024
Patient seen and examined at bedside with Dr. Lopez. Notes abdominal pain continues to improve. Passing flatus. No bm as of yet.
Objective Data
-
Intake and Output
05/26/24 05/27/24 05/28/24
06:59 06:59 06:59
Intake Total 1860 / 1860
Output Total 1775 / 1775 750 / 750
Balance -1775 / -1775 1860 / 1860 -750 / -750
Intake:
Oral fluids 360 / 360
IV fluids (Total) 1500 / 1500
Output:
Gastrointestinal tube output ( 1500 / 1500 750 / 750
Total)
Burleigh Sump 750 / 750
Urine, Voided 275 / 275
Other:
Number of approximated LARGE 1
amounts of urine
Vital Signs
Temp Pulse Resp BP Pulse Ox
98.0 F 63 17 108/70 97
05/27/24 08:21 05/27/24 04:00 05/27/24 04:00 05/27/24 04:00 05/27/24 05:50
Lab Results
05/27/24 03:17
05/27/24 03:17
Calcium 7.8 mg/dl (8.4-10.2) L 05/27/24 03:17
Phosphorus 4.7 mg/dl (2.5-4.5) H 05/26/24 04:03
Magnesium 1.9 mg/dl (1.6-2.3) 05/26/24 04:03
Total Bilirubin 0.4 mg/dl (0.2-1.3) 05/27/24 03:17
Direct Bilirubin 0.3 mg/dl (0.0-0.4) 05/26/24 04:03
AST 83 U/L (17-59) H 05/27/24 03:17
ALT 117 U/L (0-50) H 05/27/24 03:17
Alkaline Phosphatase 42 U/L (38-126) 05/27/24 03:17
Total Protein 5.1 g/dl (6.3-8.2) L 05/27/24 03:17
Albumin 2.8 g/dl (3.5-5.0) L 05/27/24 03:17
Physical Exam
-
NAD
ABD soft, generalized mild tenderness mostly centrally,ngt with gastric outputs, mildly distended
--- NOTE | 2024-05-27 09:52 | W.PN.GI.CBS2 ---
Today's Communication / Plan
-
NGT clamp trial, continue NPO. Check abdominal xray.
Assessment / Plan
-
Paulie is a 68-year-old male with past medical history of alcohol and tobacco abuse and questionable Crohn's disease but not formally diagnosed who presents with reported hematemesis, concern for upper GI bleeding as well as a small bowel obstruction
on arrival. CT scan showed transition point in the ileum, NG tube placed with immediate output of 2 L of bilious and coffee-ground material. He admits to heavy NSAID use following repeat should surgery on 05/16. Initial hemoglobin was 16.4 with
improvement to 14.2. Lab abnormalities include elevated transaminases, AST 346, ALT 220, normal T. bili and alkaline phosphatase, platelets within normal limits. He reports previously following with Dr. Sparks at [facility], EGD and
colonoscopy performed about 5 years ago, states they felt it could be Crohn's but were unable to definitively say. Never received treatment for this, cannot provide any additional details requiring this. He does admit to chronic GI symptoms of
bloating and diarrhea for the last 15 to 20 years. He does recall a capsule endoscopy at some point, no MRE or CTE.
#SBO-- concern for new IBD diagnosis (Crohns)
-NG with 1500 cc of bilious output; no concern for active GI bleeding
-NGT clamp trial, continue NPO for now
-Abd xray pending
-IV PPI
-Surgery following, appreciate input-- no plans for surgical intervention, appears to be only partially obstructed
-UGI w/ SBFT vs. CTE tomorrow-- will discuss with surgery
-Agree with PO contrast study pending clinical course
-CRP elevated to 74.70
-check hepatitis serologies, quant TB, fecal calprotectin
-request records from [facility] (Dr. Sparks) tomorrow, given reported 'questionable' Crohns on prior exams
Acute Liver Injury- likely 2/2 active EtoH use given AST > ALT; need to consider possible autoimmune etiology given suspected IBD; would hold off on sending comprehensive serologic workup at this time
-AST 346, ALT 220, Alk phos 40, Tbili 0.8 --> downtrending, AST 83, ALT 117, Alk phos 42, Tbili WNL
-no evidence of cirrhosis on imaging
-check hepatitis serologies
-no signs of withdrawal
DVT ppx
Subjective
Subjective
Date of Service: May 27, 2024
Patient seen in follow-up, no significant output from NG tube since yesterday. Reports feeling improved, passing flatus, last bowel movement 48 hours ago. NG tube clamp trial initiated by colorectal surgery. Abdominal x-ray pending.
Objective
Data Reviewed
Laboratory Data:
Laboratory Results
05/27/24 03:17
05/27/24 03:17
Laboratory Results
Phosphorus 4.7 mg/dl (2.5-4.5) H 05/26/24 04:03
Magnesium 1.9 mg/dl (1.6-2.3) 05/26/24 04:03
Total Bilirubin 0.4 mg/dl (0.2-1.3) 05/27/24 03:17
AST 83 U/L (17-59) H 05/27/24 03:17
ALT 117 U/L (0-50) H 05/27/24 03:17
Alkaline Phosphatase 42 U/L (38-126) 05/27/24 03:17
Lipase 47 U/L (23-300) 05/25/24 22:47
Vital Signs and I&O:
Vital Signs
Temp Pulse Resp BP Pulse Ox
98.0 F 63 17 108/70 97
05/27/24 08:21 05/27/24 04:00 05/27/24 04:00 05/27/24 04:00 05/27/24 05:50
I&O
05/26/24 05/27/24 05/28/24
06:59 06:59 06:59
Intake Total 1860 / 1860
Output Total 1774 750 / 750
Balance -1774 -1774 - / 750
Physical Exam
Physical Exam
HEENT: Anicteric and Moist mucous membranes
GI: Distended and Tender (mild tenderness in midabdomen but no rebound or guarding)
[2024-05-27] MEDS: LIDOCAINE 4% PATCH 1 PATCH TOPICAL (17:07)
[2024-05-27] MEDS: LIDOCAINE 4% PATCH TOPICAL (20:17)
[2024-05-27] MEDS: PROTONIX IV 40 MG IV (20:17)
[2024-05-27] MEDS: NSS (PRESERVATIVE FREE) 10 ML IV (20:18)
[2024-05-28] VITALS (11 sets, daily range): BP systolic 112–149; BP diastolic 70–88; BMI 31.6
[2024-05-28] MEDS: D5/0.9% SODIUM CHLORIDE 1000 IV ×2 (03:59→12:15)
[2024-05-28 04:24] LABS: % Basophils 0.9 % (0-2); % Eosinophils 2.8 % (0-6); % Immature Granulocytes 0.9 % (0-0.5); % Lymphocytes 24.3 % (20.5-51.1); % Monocytes 12.1 % (1.7-9.3); Absolute Basophils 0.1 10^3/uL (0-0.2); Absolute Eosinophils 0.2 10^3/uL (0-0.7); Absolute Immature Granulocytes 0.1 10^3/uL (0-0.05); Absolute Lymphocytes 1.9 10^3/uL (1.2-3.4); Absolute Monocytes 0.9 10^3/uL (0.1-0.6); Absolute Neutrophils 4.6 10^3/uL (1.4-6.5); Hemoglobin 12.8 g/dL (13.0-18.0); Mean Corpuscular Hgb 31.8 pg (27.0-31.0); Mean Corpuscular Volume 99.3 fL (80.0-94.0); Mean Platelet Volume 9.5 fL (7.4-10.4); Nucleated Red Blood Cells % 0 % (-); Platelet Count 217 10^3/uL (130-400); Red Blood Cell Count 4.03 10^6/uL (4.70-6.10); Red Cell Dist. Width 12.7 % (11.5-14.5); White Blood Cell Count 7.8 10^3/uL (4.8-10.8)
[2024-05-28 04:44] LABS: Blood Urea Nitrogen 9 mg/dl (9-20); Calcium 8.1 mg/dl (8.4-10.2); Carbon Dioxide 28 mmol/L (22-30); Chloride 104 mmol/L (98-107); Estimated Creatinine Clearance 80 ml/min; Glucose 87 mg/dl (70-99); Magnesium 2.1 mg/dl (1.6-2.3); Potassium 3.4 mmol/L (3.5-5.1); Sodium 143 mmol/L (135-145); eGFR > 60.00
--- NOTE | 2024-05-28 05:24 | W.PN.HOSP.TC ---
Today's Communication/Plan
-
steroids diet as per GI
cont pain control
Protonix
Assessment / Plan
Assessment / Plan
Physical exam:
General: No acute distress, appears comfortable
HEENT: Normocephalic, Atraumatic and Moist Mucous Membranes
Respiratory: Clear to Auscultation; Negative Wheezes, Rales or Rhonchi
Cardiac: Regular Rhythm and S1/S2
GI: Soft, hypoactive bowel sounds, nontender and Nondistended
Musculoskeletal: No Clubbing, No Cyanosis and No Edema
Neuro: Awake, Alert and Oriented
Psych: Calm
A/P:
Small bowel obstruction resolving
IV fluids completed with advancement diet to clear liquid
NG tube removed as per GI
Abd X-ray appreciated
Surgery consult appreciated no acute surgical intervention necessary at this time
CT Enterography appreciated suggestive partial SBO d/t Crohn's disease
GI consult Appreciated Solumedrol 20 mg IV Q8H started
Fever 100.4 05/25 Likely related to Crohn's disease
since resolved, off abx
Possible GI bleed likely related to Crohn's disease
Continue IV PPI BID
GI consult appreciated and no concern for active bleeding
Anemia:
Hemoglobin 14.2--> 11.9-->12.8
Acute blood loss anemia versus dilutional
resolving
monitor
Crohn's disease unclear hx
Cont steroids as per GI
Records Requested--> he says he was diagnosed many years back but has not required any treatment.
Continue to monitor
Hypokalemia:
Replete and trend
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
Trending down
hepatitis serology negative
Alcohol use disorder:
Continue MSAS protocol
no significant withdrawal symptoms noted
DVT prophylaxis:
SCDs
CODE STATUS:
Full code
I spent a total of 50 minutes with the patient or on the floor. More than 50% of this time involved counseling and coordination of care.
Anticipated Discharge: 24 - 48 hours
Subjective/Interval History
-
Date of Service: May 28, 2024
Seen and examined at bedside in no acute distress sitting up comfortably in bed. Overall reports feeling well. Reports right shoulder pain but tolerable with current pain regimen
Objective Data
-
Labs:
Laboratory Results
05/28/24
03:54
WBC 7.8
Hgb 12.8 L
Hct 40.0
Plt Count 217
Sodium 143
Potassium 3.4 L
Chloride 104
Carbon Dioxide 28
BUN 9
Creatinine 0.9
Glucose 87
Calcium 8.1 L
Vital Signs:
Vital Signs
Temp Pulse Resp BP Pulse Ox
97.5 F 65 19 129/77 98
05/28/24 03:51 05/27/24 22:00 05/27/24 22:00 05/27/24 22:00 05/27/24 23:12
I&O
05/26/24 05/27/24 05/28/24
06:59 06:59 06:59
Intake Total 1859
Output Total 1774 850 / 850
Balance -1774 / -1774 -850 / -850
[2024-05-28 08:53] LABS: Phosphorus 2.9 mg/dl (2.5-4.5)
[2024-05-28] MEDS: NSS (PRESERVATIVE FREE) 10 ML IV ×2 (09:24→20:53)
[2024-05-28] MEDS: KCL 270 MEQ IV (09:24)
[2024-05-28] MEDS: PROTONIX IV 40 MG IV ×2 (09:24→20:53)
[2024-05-28] MEDS: THIAMINE INJECTION 200 MG IV ×2 (09:25→20:53)
[2024-05-28] MEDS: FOLVITE 1 MG PO (09:25)
--- NOTE | 2024-05-28 10:08 | W.PN.GI.CBS2 ---
Today's Communication / Plan
-
CTE today
Assessment / Plan
-
Paulie is a 68-year-old male with past medical history of alcohol and tobacco abuse and questionable Crohn's disease but not formally diagnosed who presents with reported hematemesis, concern for upper GI bleeding as well as a small bowel obstruction
on arrival. CT scan showed transition point in the ileum, NG tube placed with immediate output of 2 L of bilious and coffee-ground material. He admits to heavy NSAID use following repeat should surgery on 05/16. Initial hemoglobin was 16.4 with
improvement to 14.2. Lab abnormalities include elevated transaminases, AST 346, ALT 220, normal T. bili and alkaline phosphatase, platelets within normal limits. He reports previously following with Dr. Sparks at [facility], EGD and
colonoscopy performed about 5 years ago, states they felt it could be Crohn's but were unable to definitively say. Never received treatment for this, cannot provide any additional details requiring this. He does admit to chronic GI symptoms of
bloating and diarrhea for the last 15 to 20 years. He does recall a capsule endoscopy at some point, no MRE or CTE.
#SBO-- concern for new IBD diagnosis (Crohns)
-NG with 1500 cc of bilious output; no concern for active GI bleeding
-NGT removed; exam improving.
-Abd xray shows persistent SBO, however, improved compared to prior film
-IV PPI
-Surgery following, appreciate input-- no plans for surgical intervention, appears to be only partially obstructed
-CTE today-- hope to advance diet later on today
-ESR 24
-CRP elevated to 74.70
-check hepatitis serologies, quant TB, fecal calprotectin--pending
-request records from [facility] (Dr. Sparks)- given reported 'questionable' Crohns on prior exams
Acute Liver Injury- likely 2/2 active EtoH use given AST > ALT; need to consider possible autoimmune etiology given suspected IBD; would hold off on sending comprehensive serologic workup at this time
-AST 346, ALT 220, Alk phos 40, Tbili 0.8 --> downtrending, AST 83, ALT 117, Alk phos 42, Tbili WNL; no LFTs on todays labs, repeat with tomorrows labs
-no evidence of cirrhosis on imaging
-check hepatitis serologies-- pending
-no signs of withdrawal
DVT ppx
Subjective
Subjective
Date of Service: May 28, 2024
NGT removed. Small formed BM overnight. Patient endorses feeling better. CTE today.
Objective
Data Reviewed
Laboratory Data:
Laboratory Results
05/28/24 03:54
05/28/24 03:54
Laboratory Results
Phosphorus 2.9 mg/dl (2.5-4.5) 05/28/24 03:54
Magnesium 2.1 mg/dl (1.6-2.3) 05/28/24 03:54
Total Bilirubin 0.4 mg/dl (0.2-1.3) 05/27/24 03:17
AST 83 U/L (17-59) H 05/27/24 03:17
ALT 117 U/L (0-50) H 05/27/24 03:17
Alkaline Phosphatase 42 U/L (38-126) 05/27/24 03:17
Lipase 47 U/L (23-300) 05/25/24 22:47
Vital Signs and I&O:
Vital Signs
Temp Pulse Resp BP Pulse Ox
97.8 F 52 18 135/82 98
05/28/24 07:30 05/28/24 06:00 05/28/24 06:00 05/28/24 04:07 05/27/24 23:12
I&O
05/27/24 05/28/24 05/29/24
06:59 06:59 06:59
Intake Total 1859
Output Total 850 / 850 200 / 200
Balance 1859 -850 / -850 -200 / -200
Physical Exam
Physical Exam
HEENT: Anicteric and Moist mucous membranes
GI: Soft, Distended (improved compared to yesterdays exam) and Tender (mild tenderness in midabdomen but no rebound or guarding)
--- NOTE | 2024-05-28 12:50 | PTCARENOTE ---
Pt for Enterography. Instructed on procedures and drinking contrast. Pt drank contrast as instructed. Sent to CT scan on stretcher. Pt for transfer to new room after scan, report to receiving RN. Belongings and chart packed with pt. CT aware of room
change.
--- NOTE | 2024-05-28 13:14 | W.PN.GS2 ---
Today's Communication / Plan
-
CT enterography today
Assessment / Plan
-
68 yo male with recent rotator cuff surgery and h/o ?Crohn's presenting through the ED with 3-4 days of n/v but able to pass flatus. CT imaging reviewed and consistent with a partial SBO of uncertain etiology. Denies prior intraabdominal infections
or surgeries. No hernias present. No free air, pneumatosis or evidence of bowel threat/compromise. Possibly pSBO secondary to IBD flare?
No acute surgical intervention warranted at this time
Patient going for CTE, on my read it does appear to have stricturing in the terminal ileum consistent with IBD/Crohn's, await final read. Will defer to GI regarding management but would favor steroid treatment.
Will defer diet to GI
General surgery will follow peripherally, please call with any questions or concerns.
Time Spent
Total Time Spent with Patient (in minutes): 20
Subjective Data
-
Date of Service: May 28, 2024
Interval Events:
No acute events overnight. Slept okay. Pain Controlled. Denies Nausea/Vomiting, +bowel function.
Objective Data
-
Intake and Output
05/27/24 05/28/24 05/29/24
06:59 06:59 06:59
Intake Total 1860 / 1860
Output Total 850 / 850 200 / 200
Balance 1860 / 1860 -850 / -850 -200 / -200
Intake:
Oral fluids 360 / 360
IV fluids (Total) 1500 / 1500
Output:
Gastrointestinal tube output ( 850 / 850
Total)
Campbell Sump 850 / 850
Urine, Voided 200 / 200
Other:
Number of approximated MODERATE 1
amounts of urine
Number of approximated LARGE 1
amounts of urine
Vital Signs
Temp Pulse Resp BP Pulse Ox
97.8 F 56 21 139/82 98
05/28/24 07:30 05/28/24 12:00 05/28/24 12:00 05/28/24 12:00 05/27/24 23:12
Lab Results
05/28/24 03:54
05/28/24 03:54
Calcium 8.1 mg/dl (8.4-10.2) L 05/28/24 03:54
Phosphorus 2.9 mg/dl (2.5-4.5) 05/28/24 03:54
Magnesium 2.1 mg/dl (1.6-2.3) 05/28/24 03:54
Total Bilirubin 0.4 mg/dl (0.2-1.3) 05/27/24 03:17
Direct Bilirubin 0.3 mg/dl (0.0-0.4) 05/26/24 04:03
AST 83 U/L (17-59) H 05/27/24 03:17
ALT 117 U/L (0-50) H 05/27/24 03:17
Alkaline Phosphatase 42 U/L (38-126) 05/27/24 03:17
Total Protein 5.1 g/dl (6.3-8.2) L 05/27/24 03:17
Albumin 2.8 g/dl (3.5-5.0) L 05/27/24 03:17
Physical Exam
-
GENERAL/NEURO: Awake, Alert, no distress
CHEST: Unlabored breathing on RA
ABDOMEN: Soft, mildly tender, mildly distended.
--- NOTE | 2024-05-28 13:30 | PTCARENOTE ---
pt transfer from IMU. Report received from LENNOX Rios. Pt c/o pain but tolerable. pt is oriented to the room. call ocasio within the reach. plan of care ongoing.
[2024-05-28] MEDS: TYLENOL 650 MG PO ×2 (15:51→23:45)
[2024-05-28] MEDS: SOLU-MEDROL PF 20 MG IV (17:10)
[2024-05-28 18:31] LABS: Hepatitis B Surface Antigen Negative (Negative)
[2024-05-28 18:37] LABS: Hepatitis A IgM Antibody Negative (Negative); Hepatitis B Core Ab, IgM Negative (Negative)
[2024-05-28 18:48] LABS: Hepatitis B Surface Antibody Negative; Hepatitis C Antibody Negative (Negative)
[2024-05-28] MEDS: D5/0.9% SODIUM CHLORIDE IV (20:51)
[2024-05-28] MEDS: LIDOCAINE 4% PATCH TOPICAL (20:52)
[2024-05-29] MEDS: SOLU-MEDROL PF 20 MG IV ×3 (02:06→17:31)
[2024-05-29 03:46] VITALS: BP 115/64
[2024-05-29 06:58] LABS: Quantiferon Mitogen minus NIL 5.79 IU/mL; Quantiferon NIL 0.09 IU/mL; Quantiferon Plus TB2 minus NIL 0.01 IU/mL (<=0.34); Quantiferon TB Gold Plus Negative (Negative)
[2024-05-29 07:35] VITALS: BP 119/71
--- NOTE | 2024-05-29 07:54 | W.PN.HOSP.TC ---
Today's Communication/Plan
-
Diet advance, steroids, as per GI
cont pain control
Assessment / Plan
Assessment / Plan
Physical exam:
General: No acute distress, appears comfortable
HEENT: Normocephalic, Atraumatic and Moist Mucous Membranes
Respiratory: Clear to Auscultation; Negative Wheezes, Rales or Rhonchi
Cardiac: Regular Rhythm and S1/S2
GI: Soft, hypoactive bowel sounds, nontender and Nondistended
Musculoskeletal: No Clubbing, No Cyanosis and No Edema
Neuro: Awake, Alert and Oriented
Psych: Calm
A/P:
Small bowel obstruction resolving
IV fluids completed with advancement diet to clear liquid
NG tube removed as per GI
Abd X-ray appreciated
Surgery consult appreciated no acute surgical intervention necessary at this time
CT Enterography appreciated suggestive partial SBO d/t Crohn's disease
GI consult Appreciated Solumedrol 20 mg IV Q8H started and diet advanced to clear liquid
Fever 100.4 05/25 Likely related to Crohn's disease
since resolved, off abx
Possible GI bleed likely related to Crohn's disease
Continue IV PPI BID
GI consult appreciated and no concern for active bleeding
Anemia:
Hemoglobin 14.2--> 11.9-->12.8
Acute blood loss anemia versus dilutional
resolving
monitor
Crohn's disease unclear hx
Cont steroids as per GI
Records Requested--> pt reported diagnosed many years back but has not required any treatment since.
Continue to monitor
Hypokalemia:
Replete and trend
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
Trending down
hepatitis serology negative
Alcohol use disorder:
Continue MSAS protocol
no significant withdrawal symptoms noted
DVT prophylaxis:
SCDs
CODE STATUS:
Full code
I spent a total of 40 minutes with the patient or on the floor. More than 50% of this time involved counseling and coordination of care.
Anticipated Discharge: 24 - 48 hours
Subjective/Interval History
-
Date of Service: May 29, 2024
Reports feeling well. Tolerating clear liquid diet.
Objective Data
-
Labs:
Laboratory Results
05/29/24
07:48
WBC Pending
Hgb Pending
Hct Pending
Plt Count Pending
Sodium Pending
Potassium Pending
Chloride Pending
Carbon Dioxide Pending
BUN Pending
Creatinine Pending
Glucose Pending
Calcium Pending
Total Bilirubin Pending
AST Pending
ALT Pending
Alkaline Phosphatase Pending
Vital Signs:
Vital Signs
Temp Pulse Resp BP Pulse Ox
97.9 F 57 18 115/64 97
05/29/24 03:46 05/29/24 03:46 05/29/24 03:46 05/29/24 03:46 05/29/24 03:46
I&O
05/28/24 05/29/24 05/30/24
06:59 06:59 06:59
Intake Total 1080 / 1080
Output Total 850 / 850 700 / 700
Balance -850 / -850 380 / 380
[2024-05-29 08:32] LABS: Hemoglobin 13.7 g/dL (13.0-18.0); Mean Corp Hgb Conc. 34.3 g/dL (33.0-37.0); Mean Corpuscular Hgb 32.9 pg (27.0-31.0); Mean Corpuscular Volume 95.9 fL (80.0-94.0); Mean Platelet Volume 9.9 fL (7.4-10.4); Platelet Count 209 10^3/uL (130-400); Red Blood Cell Count 4.17 10^6/uL (4.70-6.10); Red Cell Dist. Width 12.5 % (11.5-14.5); White Blood Cell Count 10.2 10^3/uL (4.8-10.8)
--- NOTE | 2024-05-29 08:42 | W.PN.GI.CBS2 ---
Addendum entered and electronically signed by Brandy Hines, 05/29/24 13:02:
The patient was seen and examined by me independently in collaboration with the nurse practitioner.
Past medical history/social history/medications/allergies/family history reviewed.
Lab data and imaging data reviewed.
Patient is s/p CTE yesterday, findings of partial SBO and long segment of inflammation/stricture measuring approx 25 cm in the terminal ileum up to the IC valve, suggestive of Crohns. Medical records from Dr. De La Paz obtained and reviewed
extensively. Strong suspicion of crohns dating back to 2008, however, on repeated exam including colonoscopies and capsule endoscopy, unable to establish chronicity on biopsy, only active inflammation. Unable to establish an IBD diagnosis without
chronicity. On his most recent colonoscopy in 2019, the IC valve was stenotic and unable to intubate the TI.
Plan:
-c/w IV solumedrol
-advance to low residue diet tonight
-if he continues to improve, will transition to PO steroids tomorrow
-plan for outpatient colonoscopy in 2 weeks-- hopefully, targeting underlying inflammatory component of TI stricture may enable intubation into the terminal ileum in order to obtain adequate tissue for dx
-prebiologic labs ordered, ideally would start him on Skyrizi, if able to establish dx
Original Note:
Today's Communication / Plan
-
monitor diet tolerance on clear diet
await fecal calpro-- add repeat CRP
IV methylprednisone started 05/28
hepatitis neg no immunity, TB neg
will review records with Dr. Hines and need for repeat colonoscopy OP vs start of biologic therapy
LFT's improved
Assessment / Plan
-
Paulie is a 68-year-old male with past medical history of alcohol and tobacco abuse and questionable Crohn's disease but not formally diagnosed who presents with reported hematemesis, concern for upper GI bleeding as well as a small bowel obstruction
on arrival. CT scan showed transition point in the ileum, NG tube placed with immediate output of 2 L of bilious and coffee-ground material. He admits to heavy NSAID use following repeat should surgery on 05/16. Initial hemoglobin was 16.4 with
drop in 11.6 then back up. Lab abnormalities include elevated transaminases, AST 346, ALT 220, normal T. bili and alkaline phosphatase, platelets within normal limits. He reports previously following with Dr. Sparks at [facility], EGD and
colonoscopy performed about 5 years ago, states they felt it could be Crohn's but were unable to definitively say. Never received treatment for this, cannot provide any additional details requiring this. He does admit to chronic GI symptoms of
bloating and diarrhea for the last 15 to 20 years. He does recall a capsule endoscopy.
Dr. De La Paz Record review:
2008 colonoscopy - ([facility]) granularity, friability, eythema and ulceration in TI c/w ileitis, aphthous ulcers in mid sigmoid colon, otherwise normal colon to cecum ( given Budesonide 9mg daily) bx TI acute ileitis and fibropurulent debris, c/w
origin from ulcer bed present no granulomas seen -- acute infection vs IBD vs drugs such as NSAIDS, Aphthous ulcers focal active colitis, with superficial epthelial erosions neg dysplasia (self limited colitis, antibiotic associated colitis,
ischemic colitis, crohns colitis and other idiopathic inflammatory disease may also be idiopathic
06/2010- capsule ( done for acute ileitis and focal active colitis, SBFT neg crohns suspected) noted probable crohns of small bowel
2012 office visit regional enteritis of small intestine and large intestine no clear need for treatment now. LR diet, if inadequate control first treatment 1 month of prednisone
2015- office visit crohns disease of small and large bowel- episode more typical of IBS then crohns, hyosciamine given if no response then evaluation
2017 office visit - crohns disease and small and large bowel high fiber diet, CRP, CBC and comp checked
01/[address] De La Paz localized ulceration in transverse colon, single ulcer seen though IC valve. Valve stenotic and scope would not go through otherwise normal mucosa in colon bx cecum with non specific inflammation neg active
inflammation, chronicity or dysplasia, , Ascending/transverse colon no pathologic changes, neg chronicity, colitis or dysplasia, sigmoid with focally superficially hyperplastic change neg inflammation, chronicity of dysplasia
#SBO-- concern for crohns flare with obstruction at TI as noted with prior disease with inconclusive biopsy
s/p NGT with large volume drainage on insertion now out
s/p surgical eval
-05/26 ESR 24-CRP elevated to 74.70
05/27 Small bowel obstruction, improved but unresolved when compared with the prior study
05/28 CTE low density bowel wall thickening and incomplete distensibility of distal 25 cm of ileum to level of IC valve pattern suggest crohns with partial SBO with dilated fluid filled loops of small bowel up to 3.8 cm
05/28 IV steroids started
-hepatitis serologies and quant TB negative
- fecal calpro pending
-reviewed records as above-- will review with Dr. Hines-- likely crohns there was question on NSAID related disease which pt was taking prior to admission, advised to stop
Acute Liver Injury- likely 2/2 active EtoH use given AST > ALT; need to consider possible autoimmune etiology given suspected IBD; would hold off on sending comprehensive serologic workup at this time-- repeat labs near normal
-- hepatitis neg no immunity consider eventual vaccination to A and B
-no evidence of cirrhosis on imaging
-no signs of withdrawal
-recent increased NSAID use s/p shoulder surgery 05/16
cont DVT prophylaxis-- encouraged ambulation
other med problems:
-tobacco abuse
-EOTH abuse- counseled on Quitting
-prior lami/ACL repair
-dermatitis - chronic rash
PLAN:
monitor diet tolerance on clear diet
await fecal calpro-- add repeat CRP
IV methylprednisone started 05/28
hepatitis neg no immunity, TB neg
will review records with Dr. Hines and need for repeat colonoscopy OP vs start of biologic therapy
LFT's improved
Subjective
Subjective
Date of Service: May 29, 2024
05/29 brown stool on clear diet still with bloating
Objective
Data Reviewed
Laboratory Data:
Laboratory Results
05/29/24 07:48
Laboratory Results
Phosphorus 2.9 mg/dl (2.5-4.5) 05/28/24 03:54
Magnesium 2.1 mg/dl (1.6-2.3) 05/28/24 03:54
Total Bilirubin 0.4 mg/dl (0.2-1.3) 05/27/24 03:17
AST 83 U/L (17-59) H 05/27/24 03:17
ALT 117 U/L (0-50) H 05/27/24 03:17
Alkaline Phosphatase 42 U/L (38-126) 05/27/24 03:17
Lipase 47 U/L (23-300) 05/25/24 22:47
Vital Signs and I&O:
Vital Signs
Temp Pulse Resp BP Pulse Ox
97.9 F 57 18 115/64 97
05/29/24 03:46 05/29/24 03:46 05/29/24 03:46 05/29/24 03:46 05/29/24 03:46
I&O
05/28/24 05/29/24 05/30/24
06:59 06:59 06:59
Intake Total 1080 / 1080
Output Total 850 / 850 700 / 700
Balance -850 / -850 380 / 380
Physical Exam
Physical Exam
HEENT: Anicteric and Moist mucous membranes
Cardiology: Normal Sinus Rhythm
Pulmonary: Clear
GI: Soft, Distended and Non Tender
Extremities: No Edema
Neuro: Non Focal
[2024-05-29 09:08] LABS: ALT (SGPT) 53 U/L (0-50); AST (SGOT) 29 U/L (17-59); Albumin 3.7 g/dl (3.5-5.0); Alkaline Phosphatase 70 U/L (38-126); Blood Urea Nitrogen 9 mg/dl (9-20); Calcium 8.6 mg/dl (8.4-10.2); Carbon Dioxide 21 mmol/L (22-30); Chloride 104 mmol/L (98-107); Estimated Creatinine Clearance 80 ml/min; Glucose 116 mg/dl (70-99); Magnesium 2.2 mg/dl (1.6-2.3); Phosphorus 3.9 mg/dl (2.5-4.5); Potassium 4.2 mmol/L (3.5-5.1); Sodium 140 mmol/L (135-145); Total Bilirubin 0.8 mg/dl (0.2-1.3); Total Protein 6.3 g/dl (6.3-8.2); eGFR > 60.00
[2024-05-29] MEDS: VITAMIN B1 100 MG PO ×2 (09:32→21:45)
[2024-05-29] MEDS: PROTONIX IV 40 MG IV ×2 (09:33→21:45)
[2024-05-29] MEDS: FOLVITE 1 MG PO (09:33)
[2024-05-29] MEDS: NSS (PRESERVATIVE FREE) 10 ML IV ×2 (09:33→21:46)
[2024-05-29] MEDS: TYLENOL 650 MG PO (10:48)
--- NOTE | 2024-05-29 11:01 | CM ---
Patient seen at bedside. Patient plan is for dicharge home with no needs for VN. Patient with no home DME or concerns about resources. Patient is driving and plans on driving self home. CM will continue to follow for discharge planning needs.
Plan; home with no needs anticipated
[2024-05-29 11:26] VITALS: BP 119/63
[2024-05-29 15:25] VITALS: BP 128/73
[2024-05-29 19:50] VITALS: BP 130/67
[2024-05-29] MEDS: LIDOCAINE 4% PATCH TOPICAL (21:49)
[2024-05-29 23:26] VITALS: BP 125/70
[2024-05-30] MEDS: TYLENOL 650 MG PO (00:12)
[2024-05-30] MEDS: SOLU-MEDROL PF 20 MG IV ×3 (01:13→17:01)
[2024-05-30 03:23] VITALS: BP 129/75
[2024-05-30] MEDS: MYLICON 80 MG PO (04:49)
[2024-05-30 07:20] VITALS: BP 120/69
--- NOTE | 2024-05-30 08:18 | W.PN.HOSP.TC ---
Today's Communication/Plan
-
cont steroids diet as per GI
Ok to dc gold leaf layer
discharge planning
Assessment / Plan
Assessment / Plan
Physical exam:
General: No acute distress, appears comfortable
HEENT: Normocephalic, Atraumatic and Moist Mucous Membranes
Respiratory: Clear to Auscultation; Negative Wheezes, Rales or Rhonchi
Cardiac: Regular Rhythm and S1/S2
GI: Soft, hypoactive bowel sounds, nontender and Nondistended
Musculoskeletal: No Clubbing, No Cyanosis and No Edema
Neuro: Awake, Alert and Oriented
Psych: Calm
A/P:
Small bowel obstruction resolving
IV fluids completed with advancement diet to clear liquid
NG tube removed as per GI
Abd X-ray appreciated
Surgery consult appreciated no acute surgical intervention necessary at this time
CT Enterography appreciated suggestive partial SBO d/t Crohn's disease
GI consult Appreciated Solumedrol 20 mg IV Q8H started and diet gradually advanced to low residue
Fever 100.4 05/25 Likely related to Crohn's disease
since resolved, off abx
Possible GI bleed likely related to Crohn's disease
Continue IV PPI BID
GI consult appreciated and no concern for active bleeding
Anemia:
Hemoglobin 14.2--> 11.9-->12.8
Acute blood loss anemia versus dilutional
resolving
monitor
Crohn's disease unclear hx
Cont steroids as per GI
Records Requested--> pt reported diagnosed many years back but has not required any treatment since.
Continue to monitor
Hypokalemia:
Replete and trend
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
Trending down
hepatitis serology negative
Alcohol use disorder:
Continue MSAS protocol
no significant withdrawal symptoms noted
DVT prophylaxis:
SCDs
CODE STATUS:
Full code
Ok to discontinue gold leaf layer
I spent a total of 40 minutes with the patient or on the floor. More than 50% of this time involved counseling and coordination of care.
Anticipated Discharge: Within 24 hours
Subjective/Interval History
-
Date of Service: May 30, 2024
Sitting up comfortably in chair no acute distress. Bloating gas discomfort overnight resolved with simethicone. Tolerating diet.
Objective Data
-
Labs:
Laboratory Results
05/30/24
07:53
WBC Pending
Hgb Pending
Hct Pending
Plt Count Pending
Sodium Pending
Potassium Pending
Chloride Pending
Carbon Dioxide Pending
BUN Pending
Creatinine Pending
Glucose Pending
Calcium Pending
Total Bilirubin Pending
AST Pending
ALT Pending
Alkaline Phosphatase Pending
Vital Signs:
Vital Signs
Temp Pulse Resp BP Pulse Ox
98 F 59 20 129/75 92
05/30/24 03:23 05/30/24 03:23 05/30/24 03:23 05/30/24 03:23 05/30/24 03:23
I&O
05/29/24 05/30/24 05/31/24
06:59 06:59 06:59
Intake Total 1080 / 1080 720 / 720
Output Total 700 / 700 1125 / 1125
Balance 380 / 380 -405 / -405
[2024-05-30 09:15] LABS: ALT (SGPT) 42 U/L (0-50); AST (SGOT) 26 U/L (17-59); Albumin 3.6 g/dl (3.5-5.0); Alkaline Phosphatase 69 U/L (38-126); Blood Urea Nitrogen 15 mg/dl (9-20); Calcium 8.6 mg/dl (8.4-10.2); Carbon Dioxide 22 mmol/L (22-30); Chloride 103 mmol/L (98-107); Estimated Creatinine Clearance 72 ml/min; Glucose 118 mg/dl (70-99); Magnesium 2.3 mg/dl (1.6-2.3); Potassium 4.1 mmol/L (3.5-5.1); Sodium 137 mmol/L (135-145); Total Bilirubin 0.6 mg/dl (0.2-1.3); Total Protein 5.9 g/dl (6.3-8.2); eGFR > 60.00
[2024-05-30] MEDS: NSS (PRESERVATIVE FREE) 10 ML IV ×2 (09:17→19:14)
[2024-05-30] MEDS: PROTONIX IV 40 MG IV ×2 (09:17→19:14)
[2024-05-30] MEDS: FOLVITE 1 MG PO (09:19)
[2024-05-30] MEDS: VITAMIN B1 100 MG PO ×2 (09:19→19:13)
--- NOTE | 2024-05-30 09:26 | W.PN.GI.CBS2 ---
Today's Communication / Plan
-
Plan to transition to PO steroids tomorrow
Assessment / Plan
-
Paulie is a 68-year-old male with past medical history of alcohol and tobacco abuse and questionable Crohn's disease but not formally diagnosed who presents with reported hematemesis, concern for upper GI bleeding as well as a small bowel obstruction
on arrival. CT scan showed transition point in the ileum, NG tube placed with immediate output of 2 L of bilious and coffee-ground material. He admits to heavy NSAID use following repeat should surgery on 05/16. Initial hemoglobin was 16.4 with
drop in 11.6 then back up. Lab abnormalities include elevated transaminases, AST 346, ALT 220, normal T. bili and alkaline phosphatase, platelets within normal limits. He reports previously following with Dr. Sparks at [facility], EGD and
colonoscopy performed about 5 years ago, states they felt it could be Crohn's but were unable to definitively say. Never received treatment for this, cannot provide any additional details requiring this. He does admit to chronic GI symptoms of
bloating and diarrhea for the last 15 to 20 years. He does recall a capsule endoscopy.
Dr. De La Paz Record review:
2008 colonoscopy - ([facility]) granularity, friability, eythema and ulceration in TI c/w ileitis, aphthous ulcers in mid sigmoid colon, otherwise normal colon to cecum ( given Budesonide 9mg daily) bx TI acute ileitis and fibropurulent debris, c/w
origin from ulcer bed present no granulomas seen -- acute infection vs IBD vs drugs such as NSAIDS, Aphthous ulcers focal active colitis, with superficial epthelial erosions neg dysplasia (self limited colitis, antibiotic associated colitis,
ischemic colitis, crohns colitis and other idiopathic inflammatory disease may also be idiopathic
06/2010- capsule ( done for acute ileitis and focal active colitis, SBFT neg crohns suspected) noted probable crohns of small bowel
2012 office visit regional enteritis of small intestine and large intestine no clear need for treatment now. LR diet, if inadequate control first treatment 1 month of prednisone
2015- office visit crohns disease of small and large bowel- episode more typical of IBS then crohns, hyosciamine given if no response then evaluation
2017 office visit - crohns disease and small and large bowel high fiber diet, CRP, CBC and comp checked
01/[address] De La Paz localized ulceration in transverse colon, single ulcer seen though IC valve. Valve stenotic and scope would not go through otherwise normal mucosa in colon bx cecum with non specific inflammation neg active
inflammation, chronicity or dysplasia, , Ascending/transverse colon no pathologic changes, neg chronicity, colitis or dysplasia, sigmoid with focally superficially hyperplastic change neg inflammation, chronicity of dysplasia
#SBO-- concern for crohns flare with obstruction at TI as noted with prior disease with inconclusive biopsy
s/p NGT with large volume drainage on insertion now out
s/p surgical eval
-05/26 ESR 24-CRP elevated to 74.70 --> 36.50 following steroids
05/27 Small bowel obstruction, improved but unresolved when compared with the prior study
05/28 CTE low density bowel wall thickening and incomplete distensibility of distal 25 cm of ileum to level of IC valve pattern suggest crohns with partial SBO with dilated fluid filled loops of small bowel up to 3.8 cm
05/28 IV steroids started
-hepatitis serologies and quant TB negative
- fecal calpro pending
-reviewed records as above-- - likely crohns there was question on NSAID related disease which pt was taking prior to admission, advised to stop
-continue IV steroids today-- plan for transition to PO steroids tomorrow, possible d/c in afternoon if continues to improve
-plan for colonoscopy approx 2-3 weeks following discharge
Acute Liver Injury- likely 2/2 active EtoH use given AST > ALT; need to consider possible autoimmune etiology given suspected IBD; would hold off on sending comprehensive serologic workup at this time-- repeat labs near normal
-- hepatitis neg no immunity consider eventual vaccination to A and B
-no evidence of cirrhosis on imaging
-no signs of withdrawal
-recent increased NSAID use s/p shoulder surgery 05/16
cont DVT prophylaxis-- encouraged ambulation
other med problems:
-tobacco abuse
-EOTH abuse- counseled on Quitting
-prior lami/ACL repair
-dermatitis - chronic rash
PLAN:
continue low residue diet
await fecal calpro
IV methylprednisone started 05/28, plan to transition to PO steroids tomorrow (05/31)
hepatitis neg no immunity, TB neg
LFT's improved
Subjective
Subjective
Date of Service: May 30, 2024
patient tolerating low residue diet. Reports lots of flatus last night, had a BM. Overall, feels improved.
Objective
Data Reviewed
Laboratory Data:
Laboratory Results
05/30/24 07:53
Laboratory Results
Phosphorus 3.9 mg/dl (2.5-4.5) 05/29/24 07:48
Magnesium 2.3 mg/dl (1.6-2.3) 05/30/24 07:53
Total Bilirubin 0.6 mg/dl (0.2-1.3) 05/30/24 07:53
AST 26 U/L (17-59) 05/30/24 07:53
ALT 42 U/L (0-50) 05/30/24 07:53
Alkaline Phosphatase 69 U/L (38-126) 05/30/24 07:53
Lipase 47 U/L (23-300) 05/25/24 22:47
Vital Signs and I&O:
Vital Signs
Temp Pulse Resp BP Pulse Ox
97.6 F 58 20 120/69 94
05/30/24 07:20 05/30/24 07:20 05/30/24 07:20 05/30/24 07:20 05/30/24 07:20
I&O
05/29/24 05/30/24 05/31/24
06:59 06:59 06:59
Intake Total 1080 / 1080 720 / 720
Output Total 700 / 700 1125 / 1125
Balance 380 / 380 -405 / -405
Physical Exam
Physical Exam
HEENT: Anicteric and Moist mucous membranes
Cardiology: Normal Sinus Rhythm
Pulmonary: Clear
GI: Soft, Distended and Non Tender
Extremities: No Edema
Neuro: Non Focal
[2024-05-30 09:29] LABS: Phosphorus 3.2 mg/dl (2.5-4.5)
[2024-05-30 09:43] LABS: Hematocrit 37.2 % (39.0-52.0); Hemoglobin 12.9 g/dL (13.0-18.0); Mean Corp Hgb Conc. 34.7 g/dL (33.0-37.0); Mean Corpuscular Hgb 32.7 pg (27.0-31.0); Mean Corpuscular Volume 94.4 fL (80.0-94.0); Mean Platelet Volume 9.9 fL (7.4-10.4); Platelet Count 262 10^3/uL (130-400); Red Blood Cell Count 3.94 10^6/uL (4.70-6.10); Red Cell Dist. Width 12.3 % (11.5-14.5); White Blood Cell Count 13.7 10^3/uL (4.8-10.8)
[2024-05-30 11:44] VITALS: BP 145/74
[2024-05-30 15:00] VITALS: BP 134/79
--- NOTE | 2024-05-30 15:28 | CM ---
Patient seen at bedside, plan for discharge tomorrow now, no MC. Patient for discharge home with no needs.
Plan; home with no needs.
[2024-05-30] MEDS: LIDOCAINE 4% PATCH TOPICAL (19:30)
[2024-05-30 23:55] VITALS: BP 120/69
[2024-05-31] MEDS: TYLENOL 650 MG PO (00:38)
[2024-05-31] MEDS: SOLU-MEDROL PF 20 MG IV (01:55)
[2024-05-31] MEDS: MYLICON 80 MG PO (01:56)
[2024-05-31 06:28] LABS: Calprotectin, Fecal 279 ug/g (<=49)
[2024-05-31 07:23] VITALS: BP 138/78
--- NOTE | 2024-05-31 07:38 | W.PN.HOSP.TC ---
Today's Communication/Plan
-
discharge
Assessment / Plan
Assessment / Plan
Physical exam:
General: No acute distress, appears comfortable
HEENT: Normocephalic, Atraumatic and Moist Mucous Membranes
Respiratory: Clear to Auscultation; Negative Wheezes, Rales or Rhonchi
Cardiac: Regular Rhythm and S1/S2
GI: Soft, hypoactive bowel sounds, nontender and Nondistended
Musculoskeletal: No Clubbing, No Cyanosis and No Edema
Neuro: Awake, Alert and Oriented
Psych: Calm
A/P:
Small bowel obstruction resolving
IV fluids completed with advancement diet to clear liquid
NG tube completed as per GI
Abd X-ray appreciated
Surgery consult appreciated no acute surgical intervention necessary at this time
CT Enterography appreciated suggestive partial SBO d/t Crohn's disease
GI consult Appreciated Solumedrol 20 mg IV Q8H eventually converted to prednisone 40 mg daily, diet gradually advanced to low residue, cleared for discharge outpatient follow up.
Fever 100.4 05/25 Likely related to Crohn's disease
since resolved, off abx
Possible GI bleed likely related to Crohn's disease
GI consult appreciated and no concern for active bleeding
treated with IV PPI BID, converted to PO 40 mg daily stress ulcer prophylaxis while on high dose steroids as above
Anemia:
H&H stable
Acute blood loss anemia versus dilutional
resolved
Crohn's disease unclear hx
Cont steroids as per GI
outpt follow up as per GI
Hypokalemia:
Resolved
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
Resolved
hepatitis serology negative
Possible Alcohol use disorder:
no significant withdrawal symptoms noted during stay
ETOH abstinence counseled
DVT prophylaxis:
SCDs
CODE STATUS:
Full code
Medically stable for discharge home with outpatient follow up recommendations
Total Time Preparing Discharge ___40____ minutes including examination of the patient, summary of the hospital stay, instructions for continuing care to all relevant caregivers; and preparation of discharge records, prescriptions, and referral
forms if necessary.
Anticipated Discharge: Today
Subjective/Interval History
-
Date of Service: May 31, 2024
Seen and examined at bedside in no acute distress sitting up comfortably in chair overall reports feeling well. Eager to go home. Denies new acute issues.
Objective Data
-
Labs:
Laboratory Results
05/31/24
06:00
WBC Pending
Hgb Pending
Hct Pending
Plt Count Pending
Sodium Pending
Potassium Pending
Chloride Pending
Carbon Dioxide Pending
BUN Pending
Creatinine Pending
Glucose Pending
Calcium Pending
Total Bilirubin Pending
AST Pending
ALT Pending
Alkaline Phosphatase Pending
Vital Signs:
Vital Signs
Temp Pulse Resp BP Pulse Ox
97.9 F 69 20 120/69 97
05/30/24 23:55 05/30/24 23:55 05/30/24 23:55 05/30/24 23:55 05/30/24 23:55
I&O
05/30/24 05/31/24 06/01/24
06:59 06:59 06:59
Intake Total 720 / 720 1020 / 1020
Output Total 1125 / 1125 2275 / 2275
Balance -405 / -405 -1255 / -1255
--- NOTE | 2024-05-31 07:53 | W.PN.GI.CBS2 ---
Today's Communication / Plan
-
Transition to 40mg Prednisone daily with taper; okay to d/c today
Assessment / Plan
-
Paulie is a 68-year-old male with past medical history of alcohol and tobacco abuse and questionable Crohn's disease but not formally diagnosed who presents with reported hematemesis, concern for upper GI bleeding as well as a small bowel obstruction
on arrival. CT scan showed transition point in the ileum, NG tube placed with immediate output of 2 L of bilious and coffee-ground material. He admits to heavy NSAID use following repeat should surgery on 05/16. Initial hemoglobin was 16.4 with
drop in 11.6 then back up. Lab abnormalities include elevated transaminases, AST 346, ALT 220, normal T. bili and alkaline phosphatase, platelets within normal limits. He reports previously following with Dr. Sparks at [facility], EGD and
colonoscopy performed about 5 years ago, states they felt it could be Crohn's but were unable to definitively say. Never received treatment for this, cannot provide any additional details requiring this. He does admit to chronic GI symptoms of
bloating and diarrhea for the last 15 to 20 years. He does recall a capsule endoscopy.
Dr. De La Paz Record review:
2008 colonoscopy - ([facility]) granularity, friability, eythema and ulceration in TI c/w ileitis, aphthous ulcers in mid sigmoid colon, otherwise normal colon to cecum ( given Budesonide 9mg daily) bx TI acute ileitis and fibropurulent debris, c/w
origin from ulcer bed present no granulomas seen -- acute infection vs IBD vs drugs such as NSAIDS, Aphthous ulcers focal active colitis, with superficial epthelial erosions neg dysplasia (self limited colitis, antibiotic associated colitis,
ischemic colitis, crohns colitis and other idiopathic inflammatory disease may also be idiopathic
06/2010- capsule ( done for acute ileitis and focal active colitis, SBFT neg crohns suspected) noted probable crohns of small bowel
2012 office visit regional enteritis of small intestine and large intestine no clear need for treatment now. LR diet, if inadequate control first treatment 1 month of prednisone
2015- office visit crohns disease of small and large bowel- episode more typical of IBS then crohns, hyosciamine given if no response then evaluation
2017 office visit - crohns disease and small and large bowel high fiber diet, CRP, CBC and comp checked
01/[address] De La Paz localized ulceration in transverse colon, single ulcer seen though IC valve. Valve stenotic and scope would not go through otherwise normal mucosa in colon bx cecum with non specific inflammation neg active
inflammation, chronicity or dysplasia, , Ascending/transverse colon no pathologic changes, neg chronicity, colitis or dysplasia, sigmoid with focally superficially hyperplastic change neg inflammation, chronicity of dysplasia
#SBO-- concern for crohns flare with obstruction at TI as noted with prior disease with inconclusive biopsy
s/p NGT with large volume drainage on insertion now out
s/p surgical eval
-05/26 ESR 24-CRP elevated to 74.70 --> 36.50 following steroids
05/27 Small bowel obstruction, improved but unresolved when compared with the prior study
05/28 CTE low density bowel wall thickening and incomplete distensibility of distal 25 cm of ileum to level of IC valve pattern suggest crohns with partial SBO with dilated fluid filled loops of small bowel up to 3.8 cm
05/28 IV steroids started
-hepatitis serologies and quant TB negative
- fecal calpro-- 219
-reviewed records as above-- - likely crohns; there was question on NSAID related disease which pt was taking prior to admission, advised to stop
-IV steroids started 05/28-- transition to PO Prednisone 40mg daily-- taper by 10mg weekly then stop
-plan for colonoscopy approx 2-3 weeks following discharge
Acute Liver Injury- likely 2/2 active EtoH -- resolved
use given AST > ALT; need to consider possible autoimmune etiology given suspected IBD; would hold off on sending comprehensive serologic workup at
-- hepatitis neg no immunization-
-no evidence of cirrhosis on imaging
-no signs of withdrawal
-recent increased NSAID use s/p shoulder surgery 05/16
--> counseled on need to discontinue all NSAID use
cont DVT prophylaxis-- encouraged ambulation
other med problems:
-tobacco abuse
-EOTH abuse- counseled on Quitting
-prior lami/ACL repair
-dermatitis - chronic rash
PLAN:
continue low residue diet
Start 40mg Prednisone daily-- taper by 10mg weekly, then stop
[id number] for ppx
Vitamin D 1,000 IU daily
IV methylprednisone started 05/28, plan to transition to PO steroids tomorrow (05/31)
hepatitis neg no immunity, TB neg -- needs vaccination to HAV and HBV
Colonoscopy scheduled with me on 06/22-- office will call patient to confirm scheduling and will also obtain an office appointment in follow-up
Subjective
Subjective
Date of Service: May 31, 2024
No overnight events. Tolerating low residue diet. Plan to transition to PO steroids today.
Objective
Data Reviewed
Laboratory Data:
Laboratory Results
Phosphorus 3.2 mg/dl (2.5-4.5) 05/30/24 07:53
Magnesium 2.3 mg/dl (1.6-2.3) 05/30/24 07:53
Total Bilirubin 0.6 mg/dl (0.2-1.3) 05/30/24 07:53
AST 26 U/L (17-59) 05/30/24 07:53
ALT 42 U/L (0-50) 05/30/24 07:53
Alkaline Phosphatase 69 U/L (38-126) 05/30/24 07:53
Lipase 47 U/L (23-300) 05/25/24 22:47
Vital Signs and I&O:
Vital Signs
Temp Pulse Resp BP Pulse Ox
97.9 F 69 20 120/69 97
05/30/24 23:55 05/30/24 23:55 05/30/24 23:55 05/30/24 23:55 05/30/24 23:55
I&O
05/30/24 05/31/24 06/01/24
06:59 06:59 06:59
Intake Total 720 / 720 1020 / 1020
Output Total 1125 / 1125 2275 / 2275
Balance -405 / -405 -1255 / -1255
Physical Exam
Physical Exam
HEENT: Anicteric and Moist mucous membranes
Cardiology: Normal Sinus Rhythm
Pulmonary: Clear
GI: Soft, Distended and Non Tender
Extremities: No Edema
Neuro: Non Focal
[2024-05-31 08:28] LABS: Hematocrit 42.3 % (39.0-52.0); Hemoglobin 14.3 g/dL (13.0-18.0); Mean Corp Hgb Conc. 33.8 g/dL (33.0-37.0); Mean Corpuscular Hgb 32.4 pg (27.0-31.0); Mean Corpuscular Volume 95.9 fL (80.0-94.0); Platelet Count 288 10^3/uL (130-400); Red Blood Cell Count 4.41 10^6/uL (4.70-6.10); Red Cell Dist. Width 12.8 % (11.5-14.5); White Blood Cell Count 13.8 10^3/uL (4.8-10.8)
[2024-05-31] MEDS: VITAMIN B1 100 MG PO (08:48)
[2024-05-31] MEDS: DELTASONE 40 MG PO (08:48)
[2024-05-31] MEDS: FOLVITE 1 MG PO (08:48)
[2024-05-31] MEDS: NSS (PRESERVATIVE FREE) 10 ML IV (08:49)
[2024-05-31] MEDS: PROTONIX IV 40 MG IV (08:49)
[2024-05-31 08:52] LABS: ALT (SGPT) 40 U/L (0-50); AST (SGOT) 30 U/L (17-59); Albumin 4.1 g/dl (3.5-5.0); Alkaline Phosphatase 73 U/L (38-126); Blood Urea Nitrogen 17 mg/dl (9-20); Calcium 8.6 mg/dl (8.4-10.2); Carbon Dioxide 24 mmol/L (22-30); Chloride 103 mmol/L (98-107); Estimated Creatinine Clearance 80 ml/min; Glucose 122 mg/dl (70-99); Magnesium 2.3 mg/dl (1.6-2.3); Phosphorus 3.5 mg/dl (2.5-4.5); Potassium 4.4 mmol/L (3.5-5.1); Sodium 141 mmol/L (135-145); Total Bilirubin 0.6 mg/dl (0.2-1.3); Total Protein 6.6 g/dl (6.3-8.2); eGFR > 60.00
--- NOTE | 2024-05-31 15:01 | W.DCSUMMARY ---
Discharge Summary
Discharge Data
Date of Admission: 05/26/24
Date of Discharge: 06/01/24
-
Pending Results: No
Discharge Plan
-
Patient Disposition: Home (Routine Discharge)
Discharge Diagnosis/Procedures: Small Bowel Obstruction due to Crohn's Disease
Condition: Fair
Diet: Low Residue
Additional Diets: Follow up with GI or primary care provider to determine when safe to advance diet.
Activity: As tolerated
Driving Restrictions: As prior to admission
Bathing Restrictions: None
Blood Work: Repeat CBC and BMP with primary care provider in 1 week of discharge
Others Tests: Follow up with GI for Colonoscopy in 2-3 weeks of discharge.
Activity Restrictions/Additional Instructions:
Follow up with primary care provider in 1 week of discharge and GI in 2-3 week of discharge.
For Crohn's disease Vit D supplementation and Prednisone taper has been prescribed.
Prednisone taper has been prescribed as follows:
40 mg daily for 1 week, then 30 mg daily for 1 week, then 20 mg daily for 1 week, then 10 mg daily for final week. Please follow up with GI before completing steroid taper as further adjustments/extension/refill may be required depending on your
clinical progress.
Protonix has been prescribed for GI stress ulcer prophylaxis while on high dose steroids. Follow up with GI or primary care provider to determine when safe to discontinue.
Please take medications as prescribed/recommended and follow up with primary care provider and/or other healthcare provider involved in your care for refills and/or further adjustment to your medication regimen as necessary.
It is recommended that you avoid NSAIDs (such as ibuprofen, advil, aspirin, naproxen, etc), smoking, and alcohol use at this time. Discuss with GI or primary care provider before considering using of aforementioned products.
Referrals:
Eliazar Weber, DO [Family Provider] - in one week
Branyd Hines, [Active] - in two to three weeks
Prescriptions:
New
prednisone 20 mg Tablet
40 mg PO DAILY 7 Days Qty: 14 0RF
Rx Instructions:
After completing 1 week. Start 30 mg daily x1 week regimen.
prednisone 10 mg tablet
30 mg PO DAILY 7 Days Qty: 21 0RF
Rx Instructions:
Start after 40 mg daily x1 week completes.
prednisone 20 mg tablet
20 mg PO DAILY 7 Days Qty: 7 0RF
Rx Instructions:
start after completing 30 mg daily x1 week
prednisone 10 mg tablet
10 mg PO DAILY 7 Days Qty: 7 0RF
Rx Instructions:
Start after completing 20 mg daily x1 week. Follow up with GI before completing.
pantoprazole 40 mg Tablet,Delayed Release (Dr/Ec)
40 mg PO DAILY 28 Days Qty: 28 0RF
cholecalciferol (vitamin D3) 25 mcg (1,000 unit) Tablet
25 mcg PO DAILY 30 Days Qty: 30 0RF
Continued
Fruit and Vegetable Daily 5-6-150 mg Capsule
1 cap PO DAILY
Glucosamine Chondroitin 550-30-1 mg Capsule
1 cap PO DAILY
Neuriva Plus 0.85 mg-200 mcg-1.2 mcg Tablet,Chewable
1 tab PO DAILY
krill oil
1 dose PO DAILY
Discharge Orders:
Discharge Patient (As Directed); Ordered 05/31/24
Ordered By: Theo Brower
Discharge Date and Time
Discharge Date/Time: 05/31/24 16:47
Print Language: BAHRAINI
--- NOTE | 2024-05-31 15:08 | CM ---
Patient seen today and patient plan is home with no needs. Patient stated that he wanted to talk to Simla an CM called to have patient seen as well as physician consult. Patient has a ride home and no VN needed. Patient stated he has not signed up
for [facility] at this time. CM will continue to follow for discharge planning needs.
Plan; home with no needs.
[2024-05-31 15:53] VITALS: BP 138/66
[2024-05-31] MEDS: VITAMIN D3 (cholecalciferol) 25 MCG PO (16:03)
== END 2024-05-31 16:47 | disposition home or self-care (01) | DRG 386 ==
LOC: 4 EAST ACU 00:44
PROVIDERS: Hospitalist; Nurse Practitioner Adult Health; ADMITTING PHYSICIAN Internal Medicine; ATTENDING PHYSICIAN Internal Medicine; CONSULT PHYSICIAN Internal Medicine; CONSULT PHYSICIAN Surgery; EMERGENCY PHYSICIAN Emergency Medicine; FAMILY PHYSICIAN Family Medicine
DX: K50.012 Crohn's disease of small intestine with intestinal obstruction (principal); D62 Acute posthemorrhagic anemia; S36.119A Unspecified injury of liver, initial encounter; F17.210 Nicotine dependence, cigarettes, uncomplicated; X58.XXXA Exposure to other specified factors, initial encounter
CPT/HCPCS: 43752; 74019; 74022; 74177; 80048; 80053; 80076; 82077; 83605; 83690; 83735; 83993; 84100; 85025; 85027; 85652; 86140; 86480; 86705; 86706; 86709; 86803; 86850; 86900; 86901; 87340; 96365; 96366; 99285; 99406; Q9967

== ENCOUNTER → 2024-06-20 06:34 | Day surgery (SDC) | payer OTHER, SELFPAY | LOC: GI 06:34 | PROVIDERS: ATTENDING PHYSICIAN Internal Medicine | DX: K50.012 Crohn's disease of small intestine with intestinal obstruction (principal); K64.8 Other hemorrhoids; K63.3 Ulcer of intestine; K57.30 Diverticulosis of large intestine without perforation or abscess without bleeding; R93.3 Abnormal findings on diagnostic imaging of other parts of digestive tract | CPT/HCPCS: 45380; 88305 ==